=== PATIENT | male | born 1955 | race Caucasian/White ===

== ENCOUNTER 2017-07-08 17:11 | Inpatient (IN) | payer MEDICARE, OTHER ==
[~2017-07-08] VITALS: Ht 188 cm; Wt 171.3 kg
[~2017-07-08 17:11] MED LIST: ATEN100T PO; CHLO25TA13 PO; LISI20TA11 PO
[2017-07-08] MEDS ORDERED: KETOROLAC 15 MG INJ IV STA (19:32)
[2017-07-08] MEDS ORDERED: SOD CHLORIDE 0.9% 500 ML IV STA (19:32)
--- NOTE | 2017-07-08 19:42 | ERD ---
ER Documentation Chief Complaint Chief Complaint Dr. Rao suggested pt. to come for M/S adm. 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 Patient states he has had a wound to the plantar aspect of the right big toe for months which has been nonhealing and getting worse despite outpatient wound clinic. He denies recent antibiotic use. He has had no fevers or chills, no chest pain or shortness of breath, no headache or blurry vision. ROS All systems reviewed and are negative except as per history of present illness. Medications Home Meds Reported Medications Aspirin (Aspirin Low Dose) 81 Mg Tablet.dr, 81 MG PO DAILY, #30 TAB 07/08/17 Simvastatin* (Zocor*) 20 Mg Tablet, 20 MG PO QHS, #30 TAB 07/08/17 Lisinopril* (Lisinopril*) 40 Mg Tablet, 40 MG PO BID, #30 TAB 07/08/17 Chlorthalidone* (Chlorthalidone*) 25 Mg Tablet, 25 MG PO QAM, TAB 01/08/14 Atenolol* (Atenolol*) 100 Mg Tablet, 100 MG PO QHS, TAB 01/08/14 Discontinued Reported Medications Lisinopril* (Lisinopril*) 20 Mg Tablet, 20 MG PO DAILY, TAB 01/08/14 Allergies Allergies: Coded Allergies: No Known Allergy (Unverified , 07/08/17) PMhx/Soc Hypertension, obesity, depression History of Surgery: No Anesthesia Reaction: No Hx Neurological Disorder: No Hx Respiratory Disorders: No Hx Cardiac Disorders: Yes (HTN) Hx Psychiatric Problems: Yes (Depression) Hx Miscellaneous Medical Probl: No Hx Alcohol Use: No Hx Substance Use: No Hx Tobacco Use: No FmHx Family History: No diabetes Physical Exam Vitals Vital Signs Date Time Temp Pulse Resp B/P Pulse Ox O2 Delivery O2 Flow Rate FiO2 07/08/17 17:19 99.8 18 20 137/63 97 Physical Exam GENERAL: Well-developed, well-nourished, well-hydrated, in no apparent distress , looks nontoxic in appearance HEENT: Moist mucous membranes, pink conjunctiva, no cervical spine tenderness or step-off deformities, no goiter, no jaundice or icterus, extraocular movements intact without pain. No submandibular induration, and no pharyngeal erythema NEURO: Alert and oriented 3, cranial nerves II through XII intact bilaterally, pupils equal round reactive to light, no focal deficits or facial asymmetry, sensation intact distally Strength 5/5 in upper and lower extremities bilaterally CARDIAC: Regular rate and rhythm, no murmurs rubs or gallops LUNGS: Clear bilaterally no wheezing crackles or stridor ABDOMEN: Soft nontender, no guarding, no rigidity, no rebound, no psoas sign no obturator sign. Normoactive bowel sounds SKIN: Warm and dry to touch, ration to the first and second toes of the right foot with overlying skin cellulitis, purulent discharge EXTREMITIES: Changes consistent with stasis dermatitis of the lower extremities bilaterally, no clubbing cyanosis or edema, calves are bilaterally symmetrical, no Homans sign, no popliteal cord sign. Distal pulses equal and bilateral PSYCH: Normal affect without agitation or irritability Result Diagram: 07/08/17201707/08/172016 Results 24 hrs Laboratory Tests Test 07/08/17 20:17 07/08/17 20:18 Prothrombin Time 12.7Sec Prothrombin Time Ratio 1.0 INR International Normalized Ratio 0.94 Sodium Level 142mmol/L Potassium Level 4.5mmol/L Chloride Level 99mmol/L Carbon Dioxide Level 31mmol/L Anion Gap 17 Blood Urea Nitrogen 27mg/dl Creatinine 1.08mg/dl Glucose Level 99mg/dl Calcium Level 10.0mg/dl Total Bilirubin 0.5mg/dl Direct Bilirubin 0.00mg/dl Indirect Bilirubin 0.5mg/dl Aspartate Amino Transf (AST/SGOT) 25IU/L Alanine Aminotransferase (ALT/SGPT) 37IU/L Alkaline Phosphatase 83IU/L Total Protein 8.2g/dl Albumin 4.5g/dl Globulin 3.70g/dl Albumin/Globulin Ratio 1.21 Lipase 195U/L White Blood Count 8.710^3/ul Red Blood Count 5.6810^6/ul Hemoglobin 17.3g/dl Hematocrit 51.4% Mean Corpuscular Volume 90.5fl Mean Corpuscular Hemoglobin 30.5pg Mean Corpuscular Hemoglobin Concent 33.7g/dl Red Cell Distribution Width 12.4% Platelet Count 80790^3/UL Mean Platelet Volume 10.4fl Neutrophils % 76.0% Lymphocytes % 12.4% Monocytes % 8.1% Eosinophils % 2.3% Basophils % 0.7% Nucleated Red Blood Cells % 0.0/100WBC Neutrophils # 6.710^3/ul Lymphocytes # 1.110^3/ul Monocytes # 0.710^3/ul Eosinophils # 0.210^3/ul Basophils # 0.110^3/ul Nucleated Red Blood Cells # 0.010^3/ul Current Medications Medications (Trade) Dose Ordered Sig/Bella Route PRN Reason Start Time Stop Time Status Last Admin Dose Admin Piperacillin Sod/ Tazobactam Sod 50 ml @ 100 mls/hr ONCE ONCE IV 07/08/17 20:00 07/08/17 20:29 DC 07/08/17 20:24 Vancomycin HCl 250 ml @ 125 mls/hr ONCE IVPB 07/08/17 20:00 07/08/17 21:59 Sodium Chloride (NS) 500 ml @ 500 mls/hr Q1H STAT IV 07/08/17 19:32 07/08/17 20:31 DC 07/08/17 20:24 Ketorolac Tromethamine (Toradol) 15 mg ONCE STAT IV 07/08/17 19:32 07/08/17 19:38 DC 07/08/17 20:25 IV Flush (NS 3 ml) 3 ml PER PROTOCOL IV 07/08/17 21:30 Ondansetron HCl (Zofran Tab) 4 mg Q6H PRN PO NAUSEA AND/OR VOMITING 07/08/17 21:30 UNV Acetaminophen (Tylenol Tab) 650 mg Q6H PRN PO PAIN LEVEL 1-3 OR FEVER 07/08/17 21:30 Acetaminophen/ Hydrocodone Bitart ([place] (5/325)) 1 tab Q6H PRN PO MODERATE PAIN LEVEL 4-6 07/08/17 21:30 Acetaminophen/ Hydrocodone Bitart ([place] (5/325)) 2 tab Q6H PRN PO SEVERE PAIN LEVEL 7-10 07/08/17 21:30 Docusate Sodium (Colace) 100 mg Q12H PRN PO CONSTIPATION 07/08/17 21:30 UNV Bisacodyl (Dulcolax) 5 mg DAILY PRN PO CONSTIPATION 07/08/17 21:30 Atenolol (Tenormin) 100 mg QHS PO 07/09/17 21:00 UNV Chlorthalidone (Hygroton) 25 mg QAM PO 07/09/17 09:00 UNV Lisinopril (Zestril) 40 mg BID PO 07/09/17 09:00 UNV Miscellaneous Information 20 mg QHS PO 07/09/17 21:00 UNV Procedures/MDM IV line was established patient was placed on electronic device monitor rhythm strip revealed a sinus rhythm at about 80 bpm with upright P and T waves. Patient was afebrile I administered 500 cc normal saline intravenously, Toradol 15 mg IV 1, Zosyn 3.375 g IV and vancomycin 1 g IV. CBC and electrolytes were normal, liver function tests were normal, coagulation profile was normal X-ray right foot 3V Interpreted by me: Bones: No fracture Joints: No dislocation Foreign body: None Patient will be admitted to [facility] for continued medical management and IV antibiotics. Departure Diagnosis: Primary Impression: Infected pressure ulcer Pressure ulcer stage: unspecified pressure ulcer stage Qualified Code: L89.90 - Infected decubitus ulcer, unspecified ulcer stage Additional Impression: Cellulitis of right foot Condition: EDDIE Gaines MD Jul 08, 2017 19:42
[2017-07-08] MEDS ORDERED: PIPER-TAZO 3.375 GM IV (PMX) 50 ML IV ONE (20:00)
[2017-07-08] MEDS ORDERED: VANCOMYCIN 1 GM (PMX) 250 ML IVPB SCH (20:00)
[2017-07-08] MEDS ORDERED: SIMV20TA PO (20:18)
[2017-07-08] MEDS ORDERED: LISI40TA9 PO (20:18)
[2017-07-08] MEDS ORDERED: ASPI-664 PO (20:19)
[2017-07-08 20:24] LABS: BASOPHIL # 0.1 10^3/ul (0.0-0.1); BASOPHILS % 0.7 % (0.0-2.0); EOSINOPHILS # 0.2 10^3/ul (0.0-0.5); EOSINOPHILS % 2.3 % (0.0-7.0); HEMATOCRIT 51.4 % (42.0-52.0); HEMOGLOBIN 17.3 g/dl (14.0-18.0); LYMPHOCYTES # 1.1 10^3/ul (0.8-2.9); LYMPHOCYTES % 12.4 % (15.0-51.0); MEAN CORPUSCULAR HEMOGLOBIN 30.5 pg (29.0-33.0); MEAN CORPUSCULAR HGB CONC 33.7 g/dl (32.0-37.0); MEAN CORPUSCULAR VOLUME 90.5 fl (82.0-101.0); MEAN PLATELET VOLUME 10.4 fl (7.4-10.4); MONOCYTE # 0.7 10^3/ul (0.3-0.9); MONOCYTES % 8.1 % (0.0-11.0); NEUTROPHIL # 6.7 10^3/ul (1.6-7.5); PLATELET COUNT 227 10^3/UL (140-415); RED BLOOD COUNT 5.68 10^6/ul (4.70-6.10); RED CELL DISTRIBUTION WIDTH 12.4 % (11.5-14.5); WHITE BLOOD COUNT 8.7 10^3/ul (4.8-10.8)
--- NOTE | 2017-07-08 20:40 | RADRPT ---
PROCEDURE: XR Right Foot. CLINICAL INDICATION: Swelling. Possible osteomyelitis.. TECHNIQUE: AP, lateral and oblique views of the right foot was obtained. The images were reviewed on a PACS workstation. COMPARISON: None. FINDINGS: Soft tissues are unremarkable. There is no gas within the soft tissues. There are no focal bone eros ions. There are degenerative changes of the first digit metatarsal phalangeal and interphalangeal darion ints. There are no fractures. Joint relationships are otherwise maintained. Bone mineralization is within normal limits. Plantar calcaneal bone spur is present. IMPRESSION: No evidence for osteomyelitis. Degenerative changes of the first digit. Plantar calcaneal bone spur. RPTAT: HMVK .Osmar Patel MD, Date Time Electronically viewed and signed by .Osmar Patel MD, MD on 07/08/2017 20:39 .K/
[2017-07-08 20:45] LABS: INR 0.94; PROTIME 12.7 Sec (11.9-14.9)
[2017-07-08 20:49] LABS: ALBUMIN 4.5 g/dl (3.3-4.9); ALBUMIN/GLOBULIN RATIO 1.21; BILIRUBIN,INDIRECT 0.5 mg/dl (0-1.1); BILIRUBIN,TOTAL 0.5 mg/dl (0.2-1.3); CREATININE 1.08 mg/dl (0.61-1.24); POTASSIUM 4.5 mmol/L (3.5-5.1); TOTAL PROTEIN 8.2 g/dl (6.1-8.1)
[2017-07-08 21:00] VITALS: TEMP 98.2
[2017-07-08] MEDS ORDERED: ACETAMINOPHEN 325 MG TAB PO PRN (21:30)
[2017-07-08] MEDS ORDERED: ONDANSETRON 4 MG TAB PO PRN (21:30)
[2017-07-08] MEDS ORDERED: BISACODYL (EC) 5 MG TAB PO PRN (21:30)
[2017-07-08] MEDS ORDERED: HYDROCODONE/APAP (5/325) TAB PO PRN ×2 (21:30)
[2017-07-08] MEDS ORDERED: DOCUSATE SODIUM 100 MG CAP PO PRN (21:30)
[2017-07-08] MEDS ORDERED: NACL 0.9% 3 ML SYG IV SCH (21:30)
[2017-07-08 23:00] VITALS: Ht 188 cm; Wt 171.3 kg
[2017-07-09 02:00] VITALS: BP 126/58; RESP 20
[2017-07-09 06:36] LABS: BASOPHIL # 0.1 10^3/ul (0.0-0.1); BASOPHILS % 0.7 % (0.0-2.0); EOSINOPHILS # 0.2 10^3/ul (0.0-0.5); EOSINOPHILS % 1.6 % (0.0-7.0); HEMATOCRIT 46.6 % (42.0-52.0); HEMOGLOBIN 15.7 g/dl (14.0-18.0); LYMPHOCYTES # 1.2 10^3/ul (0.8-2.9); LYMPHOCYTES % 12.3 % (15.0-51.0); MEAN CORPUSCULAR HEMOGLOBIN 30.8 pg (29.0-33.0); MEAN CORPUSCULAR HGB CONC 33.7 g/dl (32.0-37.0); MEAN CORPUSCULAR VOLUME 91.4 fl (82.0-101.0); MEAN PLATELET VOLUME 10.8 fl (7.4-10.4); MONOCYTE # 1.2 10^3/ul (0.3-0.9); MONOCYTES % 12.5 % (0.0-11.0); NEUTROPHIL # 7.1 10^3/ul (1.6-7.5); NEUTROPHILS % 72.4 % (39.0-77.0); PLATELET COUNT 203 10^3/UL (140-415); RED CELL DISTRIBUTION WIDTH 12.6 % (11.5-14.5); WHITE BLOOD COUNT 9.8 10^3/ul (4.8-10.8)
[2017-07-09 06:52] LABS: ALBUMIN 3.8 g/dl (3.3-4.9); ALBUMIN/GLOBULIN RATIO 1.11; BILIRUBIN,INDIRECT 0.8 mg/dl (0-1.1); BILIRUBIN,TOTAL 0.8 mg/dl (0.2-1.3); CALCIUM 9.4 mg/dl (8.4-10.2); CHOL/HDL RATIO 4.7 RATIO; CREATININE 1.16 mg/dl (0.61-1.24); MAGNESIUM 1.9 mg/dl (1.7-2.5); POTASSIUM 4.2 mmol/L (3.5-5.1); TOTAL PROTEIN 7.2 g/dl (6.1-8.1)
[2017-07-09 07:18] LABS: THYROID STIMULATING HORMONE 2.37 MIU/L (0.465-4.680)
[2017-07-09 08:30] VITALS: BP 130/61; RESP 19
--- NOTE | 2017-07-09 08:56 | HP ---
Date/Time of Note Date/Time of Note DATE: 07/09/17 TIME: 08:46 Assessment/Plan VTE Prophylaxis VTE Prophylaxis Intervention: SCD's Assessment/Plan Chief Complaint/Hosp Course This is a 62-year-old male being admitted to the [facility] floor for: #1 right toe infection: Ulcerative changes of the toe and underlying infection and/or cellulitis. X-ray does not show any signs of ostium mellitus. At the current time will keep the patient on vancomycin which was started in the ED. will obtain a culture of the wound. Will consult wound care. Patient's remediation project engineer Dr. Rao was consulted as well. Will hold aspirin at this time secondary to the patient needs surgical intervention. #2 chronic skin changes bilateral lower extremities: Chronic cellulitis versus venous stasis. She denies any previous antibiotic use. His lower extremity especially over the right cook appears to have chronic skin changes which appeared very consistent with venous stasis. Patient may benefit from vascular surgery evaluation as well though this could be possibly done as an outpatient. Will defer this to the primary team and podiatry. #3 hypertension: Continue patient's home medication #4 Hyperlipidemia: Check lipid panel. 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 Patient states he has had a wound to the plantar aspect of the right big toe for months which has been nonhealing and getting worse despite outpatient wound clinic. He denies recent antibiotic use. He has had no fevers or chills, no chest pain or shortness of breath, no headache or blurry vision. Allergies: NKDA Medications: See NANCY MIRANDA Const: As per HPI Eyes : No pain discharge or redness or change in visual acuity ENT: No pain, sore throat, congestion, congestion, dysphagia or discharge Respiratory: No shortness of breath, cough, sputum, wheezing, or pleuritic pain Cardiovascular: No chest pain, palpitation, PND, or edema GI : no change in appetite, abdominal pain, nausea, vomiting, diarrhea, constipation, or change in the color his stool Genitourinary: No dysuria, hematuria, flank pain , discharge or CVA tenderness Musculoskeletal: As per HPI Skin: Chronic skin changes of the bilateral lower extremities, as per HPI Neuro: No headache, dizziness, syncope, seizure, focal weakness Endocrine: No polyuria, polydipsia, temperature intolerance Psych: No hallucination, depression, anxiety or suicidal ideation PMH/Family/Social Past Medical History Hypertension, hyperlipidemia, chronic cellulitis of the bilateral lower extremities? Past Surgical History Past Surgical Hx: no surgical history Family History Significant Family History: no pertinent family hx Social History Alcohol Use: none Smoking Status: Never smoker Drug Use: none Exam/Review of Systems Vital Signs Vitals Vital Signs Date Time Temp Pulse Resp B/P Pulse Ox O2 Delivery O2 Flow Rate FiO2 07/09/17 08:30 98.2 79 19 130/61 91 07/08/17 21:00 Room Air Intake and Output 07/08/17 07/08/17 07/09/17 15:00 23:00 07:00 Intake Total 250 ml 500 ml Balance 250 ml 500 ml Exam Exam General: Is a pleasant male, morbidly obese, lying in bed in no acute distress HEENT: Atraumatic, normocephalic. The pupils are equal, round and reactive. Extraocular motor are intact Neck: Supple with full range of motion. No rigidity or meningismus Chest: Nontender Lungs: Clear to auscultation bilaterally no crackles rales or wheezing Heart: Normal S1-S2, Regular rhythm and rate. No murmur, S3, or S4 Abdomen: Soft , nontender, nondistended , bowel sounds are present. No guarding no rebound tenderness , No masses or organomegaly. No costovertebral temporal angle mass Extremities: Chronic skin changes changes noted on the bilateral lower extremities level of the shins greater on the right. Chronic skin changes noted of the bilateral feet right greater than the left. Neurologic: Normal mental status, speech normal, cranial nerves II through XII are intact, motor and sensory are intact, no focal weakness Skin: Discoloration of the bilateral lower extremities from the level of the cook down to the feet greater on the right than the left, nonpitting edema of the right lower extremity at the level of the cook. Swelling of the right second toe erythema and warmth noted, draining wound Additional Comments PROCEDURE: XR Right Foot. CLINICAL INDICATION: Swelling. Possible osteomyelitis.. TECHNIQUE: AP, lateral and oblique views of the right foot was obtained. The images were reviewed on a PACS workstation. COMPARISON: None. FINDINGS: Soft tissues are unremarkable. There is no gas within the soft tissues. There are no focal bone erosions. There are degenerative changes of the first digit metatarsal phalangeal and interphalangeal joints. There are no fractures. Joint relationships are otherwise maintained. Bone mineralization is within normal limits. Plantar calcaneal bone spur is present. IMPRESSION: No evidence for osteomyelitis. Degenerative changes of the first digit. Plantar calcaneal bone spur. RPTAT: HMVK .Osmar Patel MD, MD Date Time Electronically viewed and signed by .Osmar Patel MD, on 07/08/2017 20:39 .K/ CC: EDDIE NAVAS MD Labs Result Diagram: 07/09/1744 07/09/17543 Medications Medications Current Medications Ondansetron HCl (Zofran Tab) 4 mg Q6H PRN PO NAUSEA AND/OR VOMITING; Start at 21:30 Acetaminophen (Tylenol Tab) 650 mg Q6H PRN PO PAIN LEVEL 1-3 OR FEVER; Start 07/08/17 at 21:30 Acetaminophen/ Hydrocodone Bitart ([place] (5/325)) 1 tab Q6H PRN PO MODERATE PAIN LEVEL 4-6; Start 07/08/17 at 21:30 Acetaminophen/ Hydrocodone Bitart ([place] (5/325)) 2 tab Q6H PRN PO SEVERE PAIN LEVEL 7-10; Start 07/08/17 at 21:30 Docusate Sodium (Colace) 100 mg Q12H PRN PO CONSTIPATION; Start 07/08/17 at 21 :30 Bisacodyl (Dulcolax) 5 mg DAILY PRN PO CONSTIPATION; Start 07/08/17 at 21:30 Atenolol (Tenormin) 100 mg QHS PO ; Start 07/09/17 at 21:00 Chlorthalidone (Hygroton) 25 mg QAM PO ; Start 07/09/17 at 09:00 Lisinopril (Zestril) 40 mg BID PO ; Start 07/09/17 at 09:00 Atorvastatin Calcium (Lipitor) 10 mg DAILY@21 PO ; Start 07/09/17 at 21:00 MARINA LEON Jul 09, 2017 08:56
[2017-07-09] MEDS ORDERED: VANCOMYCIN IV PER PHARMACY XX SCH (09:00)
[2017-07-09] MEDS: LISINOPRIL 20 MG TAB PO SCH ×2 (09:48→21:19)
[2017-07-09] MEDS: CHLORTHALIDONE 25 MG TAB PO SCH (09:48)
[2017-07-09] MEDS ORDERED: PIPER-TAZO 3.375 GM IV (PMX) 50 ML IVPB SCH (10:00)
[2017-07-09] MEDS ORDERED: VANCOMYCIN 2 GM in SOD CHLORIDE 0.9% 500 ML IVPB ONE (11:00)
[2017-07-09 13:00] VITALS: BP 127/65; RESP 18
--- NOTE | 2017-07-09 18:33 | PN ---
Date/Time of Note Date/Time of Note DATE: 07/09/17 TIME: 18:31 Assessment/Plan VTE Prophylaxis VTE Prophylaxis Intervention: SCD's Assessment/Plan Assessment/Plan 1. Right 1st and 2nd toe infection - Podiatry on board and recommendations appreciated. patient will need IV antibiotics and did not do well with HH before. Most likely will need SNF placement while receiving treatment. No osteo seen on Xray and had an MRI within the past couple months per patient which was negative for OM as well - Currently on vancomycin and ID consultation placed for antibiotic management. - Wound care per podiatry - Wound culture ordered 2. hypertension - Continue patient's home medication 3. Hyperlipidemia - continue on statin - LDL within normal limits 4. Morbid obesity - A1c 5.9 5. Disposition - continue monitoring on med/surg - pending ID evaluation Subjective 24 Hr Interval Summary Free Text/Dictation Patient has no new complaints and denies any pain in right foot. No acute overnight events. Spoke with Dr. Rao regarding patient and states will need longer term IV antibiotics and benefit from SNF placement since has issues with HH services Exam/Review of Systems Vital Signs Vitals Vital Signs Date Time Temp Pulse Resp B/P Pulse Ox O2 Delivery O2 Flow Rate FiO2 07/09/17 08:30 98.2 79 19 130/61 91 07/08/17 21:00 Room Air Intake and Output 07/08/17 07/08/17 07/09/17 15:00 23:00 07:00 Intake Total 250 ml 500 ml Balance 250 ml 500 ml Exam General: morbidly obese, lying in bed in no acute distress HEENT: Atraumatic, normocephalic. The pupils are equal, round and reactive. Extraocular motor are intact Neck: Supple Lungs: Clear to auscultation bilaterally no crackles rales or wheezing Heart: Normal S1-S2, Regular rhythm and rate. No murmur, S3, or S4 Abdomen: Soft , nontender, nondistended , bowel sounds are present. No guarding no rebound tenderness, Extremities: Chronic skin changes changes noted lower extremities level of the shins greater on the right. Chronic skin changes noted of the bilateral feet right greater than the left. Neurologic: Normal mental status, speech normal, cranial nerves II through XII are intact, motor and sensory are intact, no focal weakness Skin: venous stasis changes right lower extremity. Swelling of the right first and second toe with erythema and warmth noted, draining wound Results Result Diagram: 07/09/17 0544 07/09/17 0544 Results 24 hrs Laboratory Tests Test 07/08/17 20:17 07/08/17 20:18 07/09/17 05:44 Prothrombin Time 12.7 Prothrombin Time Ratio 1.0 INR International Normalized Ratio 0.94 Sodium Level 142 141 Potassium Level 4.5 4.2 Chloride Level 99 102 Carbon Dioxide Level 31 30 Anion Gap 17 H 13 Blood Urea Nitrogen 27 H 30 H Creatinine 1.08 1.16 Glucose Level 99 97 Calcium Level 10.0 9.4 Total Bilirubin 0.5 0.8 Direct Bilirubin 0.00 0.00 Indirect Bilirubin 0.5 0.8 Aspartate Amino Transf (AST/SGOT) 25 26 Alanine Aminotransferase (ALT/SGPT) 37 37 Alkaline Phosphatase 83 65 Total Protein 8.2 H 7.2 # Albumin 4.5 3.8 Globulin 3.70 H 3.40 H Albumin/Globulin Ratio 1.21 1.11 Lipase 195 White Blood Count 8.7 9.8 Red Blood Count 5.68 5.10 Hemoglobin 17.3 15.7 Hematocrit 51.4 46.6 Mean Corpuscular Volume 90.5 91.4 Mean Corpuscular Hemoglobin 30.5 30.8 Mean Corpuscular Hemoglobin Concent 33.7 33.7 Red Cell Distribution Width 12.4 12.6 Platelet Count 227 203 Mean Platelet Volume 10.4 10.8 H Neutrophils % 76.0 72.4 Lymphocytes % 12.4 L 12.3 L Monocytes % 8.1 12.5 H Eosinophils % 2.3 1.6 Basophils % 0.7 0.7 Nucleated Red Blood Cells % 0.0 0.0 Neutrophils # 6.7 7.1 Lymphocytes # 1.1 1.2 Monocytes # 0.7 1.2 H Eosinophils # 0.2 0.2 Basophils # 0.1 0.1 Nucleated Red Blood Cells # 0.0 0.0 Hemoglobin A1c 5.9 Magnesium Level 1.9 Triglycerides Level 225 H Cholesterol Level 151 LDL Cholesterol, Calculated 74 HDL Cholesterol 32 Cholesterol/HDL Ratio 4.7 Thyroid Stimulating Hormone (TSH) 2.370 Medications Medications Current Medications Ondansetron HCl (Zofran Tab) 4 mg Q6H PRN PO NAUSEA AND/OR VOMITING; Start at 21:30 Acetaminophen (Tylenol Tab) 650 mg Q6H PRN PO PAIN LEVEL 1-3 OR FEVER; Start 07/08/17 at 21:30 Acetaminophen/ Hydrocodone Bitart ([place] (5/325)) 1 tab Q6H PRN PO MODERATE PAIN LEVEL 4-6; Start 07/08/17 at 21:30 Acetaminophen/ Hydrocodone Bitart ([place] (5/325)) 2 tab Q6H PRN PO SEVERE PAIN LEVEL 7-10; Start 07/08/17 at 21:30 Docusate Sodium (Colace) 100 mg Q12H PRN PO CONSTIPATION; Start 07/08/17 at 21 :30 Bisacodyl (Dulcolax) 5 mg DAILY PRN PO CONSTIPATION; Start 07/08/17 at 21:30 Atenolol (Tenormin) 100 mg QHS PO ; Start 07/09/17 at 21:00 Chlorthalidone (Hygroton) 25 mg QAM PO Last administered on 07/09/17 09:48; Admin Dose 25 MG; Start 07/09/17 at 09:00 Lisinopril (Zestril) 40 mg BID PO Last administered on 07/09/17 09:48; Admin Dose 40 MG; Start 07/09/17 at 09:00 Atorvastatin Calcium 10 mg 10 mg DAILY@21 PO ; Start 07/09/17 at 21:00 Vancomycin HCl 250 ml @ 125 mls/hr Q12H IVPB ; Start 07/10/17 at 00:00 Piperacillin Sod/ Tazobactam Sod (Zosyn 3.375gm/ 50 ml (Pmx)) 50 ml @ 100 mls/ hr Q6 IVPB ; Start 07/09/17 at 18:00 KEYON HARPER MD Jul 09, 2017 18:33
[2017-07-09 19:55] VITALS: BP 135/63; RESP 18
[2017-07-09] MEDS: PIPER-TAZO 3.375 GM IV (PMX) 50 ML IVPB SCH (21:19)
[2017-07-09] MEDS: ATORVASTATIN 10 MG TAB PO SCH (21:19)
[2017-07-09] MEDS ORDERED: VANCOMYCIN 1.25 GM in SOD CHLORIDE 0.9% 250 ML IVPB SCH (23:00)
[2017-07-09] MEDS: ATENOLOL 100 MG TAB PO SCH (23:10)
[2017-07-09] MEDS: VANCOMYCIN 1 GM in NS 250 ML IVPB SCH (23:28)
[2017-07-10 02:21] VITALS: BP 85/50; RESP 20
[2017-07-10] MEDS: PIPER-TAZO 3.375 GM IV (PMX) 50 ML IVPB SCH ×3 (02:47→12:24)
--- NOTE | 2017-07-10 08:10 | CONS ---
DATE OF ADMISSION: 07/08/2017 DATE OF CONSULTATION: 07/09/2017 TYPE OF CONSULTATION: Infectious Disease. REASON FOR CONSULTATION: Antibiotic management. 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 His past problems include: 1. Hypertension. 2. Hyperlipidemia. 3. Morbid obesity. 4. Right chronic cellulitis of bilateral lower extremities. Acutely, the patient comes in with cellulitis of the right foot and second toe. He has a wound to t he plantar aspect of the right big toe for months, which has been nonhealing. He denies recent anti biotic use. He has had no fevers or chills, no chest pain, shortness of breath, no headaches, or bl urred vision. PAST MEDICAL HISTORY: Operations as outlined. FAMILY HISTORY: Noncontributory. SOCIAL HISTORY: He does not smoke, drink, or abuse drugs. ALLERGIES: None to penicillin, sulfa, or foods. MEDICATIONS: Per chart. REVIEW OF SYSTEMS: As per HPI. PHYSICAL EXAMINATION: GENERAL: The patient is a pleasant, morbidly obese male who is lying in bed in no acute distress. VITAL SIGNS: Stable. He is afebrile. SKIN: Without generalized rash. HEENT: Within normal limits. NECK: Supple. LYMPH NODES: None palpable. CHEST: Decreased breath sounds at the bases. HEART: Without murmur or gallop. ABDOMEN: Soft, nontender, nondistended. No organosplenomegaly or masses. EXTREMITIES: He has chronic skin changes in both lower extremities from the anterior tibial areas t o the foot, right greater than left. He has changes in both feet, right greater than left. He has discoloration or stasis changes with nonpitting edema. RECTAL AND GENITAL: Deferred. NEUROLOGICAL: No focal neurological abnormalities. IMAGING: An x-ray of the foot shows swelling, no gas within the soft tissue. No evidence for osteo myelitis. There are degenerative changes of the 1st digit with plantar calcaneal bone spurs. ANCILLARY LABORATORY DATA: White count is 9.8, H and H of 15.7 and 46.6, platelet count 203,000. B UN and creatinine 30/1.16. Glucose 97. IMPRESSION AND PLAN: Patient was started on vancomycin and Zosyn. We will await the response to hi s therapy. There is a wound culture that has been done, and we will await that result. I will dict ate my findings to the hospitalist. Dictated By: TONY SMILEY MD, JD/MIRTA Conf#: [id number] DID#: [id number] CC: MARINA LEON MD;*End*
[2017-07-10 08:18] VITALS: BP 123/59; RESP 16
[2017-07-10] MEDS: LISINOPRIL 20 MG TAB PO SCH ×2 (09:39→21:00)
[2017-07-10] MEDS: CHLORTHALIDONE 25 MG TAB PO SCH (09:40)
--- NOTE | 2017-07-10 11:29 | CONS ---
Date/Time of Note Date/Time of Note DATE: 07/09/17 TIME: 18:28 Assessment/Plan Assessment/Plan Problems: (1) Cellulitis of right foot Status: Acute (2) Infected pressure ulcer Status: Acute Qualifiers: Qualified Code: L89.90 - Infected decubitus ulcer, unspecified ulcer stage (3) Pre-syncope Status: Acute (4) FAM (acute kidney injury) Status: Acute (5) HTN (hypertension) Status: Acute (6) Major depressive disorder Status: Acute Additional Assessment/Plan I would like patient to continue IV antibiotics. Patient will require prison facility for continuation of his care. I have discussed the case with infectious disease and hospitalist. I also discussed the case with the patient. His best scenario would be care on a regular basis with IV antibiotics and offloading of his right foot. His second toe is at risk of amputation. Patient will be followed in-house. Consultation Date/Type/Reason Admit Date/Time Jul 08, 2017 at 20:30 Date of Consultation: Jul 09, 2017 Type of Consultation: foot and ankle surgery Reason for Consultation right second toe infection and open wound Hx of Present Illness As you know this is a 62-year-old morbidly obese male patient who I have referred from my private practice secondary to a worsening infection of his right second toe with an open wound. Patient has failed home nurse visits with wound dressing changes, antibiotics, wound care in the office and his condition is gotten worse and increased. During his last visit to the office I recommended admission to the hospital for IV antibiotics and further evaluation and higher level of care. His past medical history significant for hypertension , hyperlipidemia, chronic cellulitis of bilateral lower extremities, morbid obesity. Patient will be fully evaluated and will be started on antibiotics. Negative for fevers, chills, nausea, vomiting, diarrhea, constipation, headache , visual disturbance, neck pain, chest pain, shortness of breath. All other systems are negative, except as noted in the HPI. Past Medical History Medical History: high cholesterol, hypertension Past Surgical History Past Surgical Hx: no surgical history Family History Significant Family History: no pertinent family hx Social History Alcohol Use: none Smoking Status: Never smoker Drug Use: none Exam/Review of Systems Vital Signs Vitals Vital Signs Date Time Temp Pulse Resp B/P Pulse Ox O2 Delivery O2 Flow Rate FiO2 07/10/17 08:18 98.3 73 16 123/59 91 07/08/17 21:00 Room Air Intake and Output 07/09/17 07/09/17 07/10/17 15:00 23:00 07:00 Intake Total 50 ml 1130 ml 650 ml Balance 50 ml 1130 ml 650 ml Exam Patient is morbidly obese. He is sitting on the bedside. The right foot exam shows extensive edema and erythema of the right second toe with contracture and distal open wound. There is surrounding hyperkeratosis present in the distal aspect of the second toe and the hallux. The erythema does not extend beyond the metatarsophalangeal joint at the time. There is small amount of scant purulent drainage noted from the open wound of the right second toe. Right second toe is not tender to exam. Contracted toes noted on both feet. Labs reviewed. MRI pending. Pedal pulses are weak on both feet secondary to edema present. Results Result Diagram: 07/09/17 0544 07/09/1744 Medications Medications Current Medications Ondansetron HCl (Zofran Tab) 4 mg Q6H PRN PO NAUSEA AND/OR VOMITING; Start at 21:30 Acetaminophen (Tylenol Tab) 650 mg Q6H PRN PO PAIN LEVEL 1-3 OR FEVER; Start 07/08/17 at 21:30 Acetaminophen/ Hydrocodone Bitart ([place] (5/325)) 1 tab Q6H PRN PO MODERATE PAIN LEVEL 4-6; Start 07/08/17 at 21:30 Acetaminophen/ Hydrocodone Bitart ([place] (5/325)) 2 tab Q6H PRN PO SEVERE PAIN LEVEL 7-10; Start 07/08/17 at 21:30 Docusate Sodium (Colace) 100 mg Q12H PRN PO CONSTIPATION; Start 07/08/17 at 21 :30 Bisacodyl (Dulcolax) 5 mg DAILY PRN PO CONSTIPATION; Start 07/08/17 at 21:30 Atenolol (Tenormin) 100 mg QHS PO Last administered on 07/09/17 23:10; Admin Dose 100 MG; Start 07/09/17 at 21:00 Chlorthalidone (Hygroton) 25 mg QAM PO Last administered on 07/10/17 09:40; Admin Dose 25 MG; Start 07/09/17 at 09:00 Lisinopril (Zestril) 40 mg BID PO Last administered on 07/10/17 09:39; Admin Dose 40 MG; Start 07/09/17 at 09:00 Atorvastatin Calcium 10 mg 10 mg DAILY@21 PO Last administered on 07/09/17 21 :19; Admin Dose 10 MG; Start 07/09/17 at 21:00 Vancomycin HCl 250 ml @ 125 mls/hr Q12H IVPB Last administered on 07/09/17 23:28; Admin Dose 125 MLS/HR; Start 07/10/17 at 00:00 Piperacillin Sod/ Tazobactam Sod (Zosyn 3.375gm/ 50 ml (Pmx)) 50 ml @ 100 mls/ hr Q6 IVPB Last administered on 07/10/17 06:35; Admin Dose 100 MLS/HR; Start 07/09/17 at 18:00 PREMA MATHIS DPM Jul 10, 2017 11:29
[2017-07-10] MEDS: VANCOMYCIN 1 GM in NS 250 ML IVPB SCH (13:11)
--- NOTE | 2017-07-10 13:53 | PN ---
Date/Time of Note Date/Time of Note DATE: 07/10/17 TIME: 13:53 Assessment/Plan Lines/Catheters IV Catheter Type (from Nrsg): Peripheral IV Exam/Review of Systems Vital Signs Vitals Vital Signs Date Time Temp Pulse Resp B/P Pulse Ox O2 Delivery O2 Flow Rate FiO2 07/10/17 08:18 98.3 73 16 123/59 91 07/08/17 21:00 Room Air Intake and Output 07/09/17 07/09/17 07/10/17 15:00 23:00 07:00 Intake Total 50 ml 1130 ml 650 ml Balance 50 ml 1130 ml 650 ml Results Result Diagram: 07/09/17 0544 07/09/17 0544 Medications Medications Current Medications Ondansetron HCl (Zofran Tab) 4 mg Q6H PRN PO NAUSEA AND/OR VOMITING; Start at 21:30 Acetaminophen (Tylenol Tab) 650 mg Q6H PRN PO PAIN LEVEL 1-3 OR FEVER; Start 07/08/17 at 21:30 Acetaminophen/ Hydrocodone Bitart ([place] (5/325)) 1 tab Q6H PRN PO MODERATE PAIN LEVEL 4-6; Start 07/08/17 at 21:30 Acetaminophen/ Hydrocodone Bitart ([place] (5/325)) 2 tab Q6H PRN PO SEVERE PAIN LEVEL 7-10; Start 07/08/17 at 21:30 Docusate Sodium (Colace) 100 mg Q12H PRN PO CONSTIPATION; Start 07/08/17 at 21 :30 Bisacodyl (Dulcolax) 5 mg DAILY PRN PO CONSTIPATION; Start 07/08/17 at 21:30 Atenolol (Tenormin) 100 mg QHS PO Last administered on 07/09/17 23:10; Admin Dose 100 MG; Start 07/09/17 at 21:00 Chlorthalidone (Hygroton) 25 mg QAM PO Last administered on 07/10/17 09:40; Admin Dose 25 MG; Start 07/09/17 at 09:00 Lisinopril (Zestril) 40 mg BID PO Last administered on 07/10/17 09:39; Admin Dose 40 MG; Start 07/09/17 at 09:00 Atorvastatin Calcium 10 mg 10 mg DAILY@21 PO Last administered on 07/09/17 21 :19; Admin Dose 10 MG; Start 07/09/17 at 21:00 Vancomycin HCl 250 ml @ 125 mls/hr Q12H IVPB Last administered on 07/10/17 13:11; Admin Dose 125 MLS/HR; Start 07/10/17 at 00:00 Piperacillin Sod/ Tazobactam Sod (Zosyn 3.375gm/ 50 ml (Pmx)) 50 ml @ 100 mls/ hr Q6 IVPB Last administered on 07/10/17 12:24; Admin Dose 100 MLS/HR; Start 07/09/17 at 18:00 KEYON HARPER MD Jul 10, 2017 13:53
[2017-07-10 14:00] VITALS: BP 96/48; RESP 18
[2017-07-10] MEDS ORDERED: LEVOFLOXACIN 500 MG TAB PO ONE (15:00)
--- NOTE | 2017-07-10 16:02 | PN ---
Date/Time of Note Date/Time of Note DATE: 07/10/17 TIME: 15:59 Assessment/Plan VTE Prophylaxis VTE Prophylaxis Intervention: SCD's Lines/Catheters IV Catheter Type (from Nrsg): Peripheral IV Assessment/Plan Assessment/Plan 1. Right 1st and 2nd toe infection - Podiatry on board and recommendations appreciated. patient will need IV antibiotics but refusing SNF placement. CM working on for IV antibiotics but unable to determine which antibiotics at this time until wound cultures return. - Xray negative for OM and recent MRI shows no signs of OM as well - Currently on vancomycin and ID consultation placed for antibiotic management. - Wound care per podiatry - Wound culture ordered 2. hypertension - Continue patient's home medication 3. Hyperlipidemia - continue on statin - LDL within normal limits 4. Morbid obesity - A1c 5.9 5. Disposition - continue monitoring on med/surg - pending wound cultures for determination of IV antibiotics Subjective 24 Hr Interval Summary Free Text/Dictation Patient concerned about being sent to a SNF and would rather be sent home. Discussed need to find out what bacteria is growing in his wound before determining what antibiotics he will need. Denies any acute overnight events. Exam/Review of Systems Vital Signs Vitals Vital Signs Date Time Temp Pulse Resp B/P Pulse Ox O2 Delivery O2 Flow Rate FiO2 07/10/17 14:00 98.8 67 18 96/48 91 07/08/17 21:00 Room Air Intake and Output 07/09/17 07/09/17 07/10/17 15:00 23:00 07:00 Intake Total 50 ml 1130 ml 650 ml Balance 50 ml 1130 ml 650 ml Exam General: morbidly obese, lying in bed in no acute distress HEENT: Atraumatic, normocephalic. The pupils are equal, round and reactive. Extraocular motor are intact Neck: Supple Lungs: Clear to auscultation bilaterally no crackles rales or wheezing Heart: Normal S1-S2, Regular rhythm and rate. No murmur, S3, or S4 Abdomen: Soft , nontender, nondistended , bowel sounds are present. No guarding no rebound tenderness, Extremities: Chronic skin changes changes noted lower extremities level of the shins greater on the right. Neurologic: Normal mental status, speech normal, cranial nerves II through XII are intact, motor and sensory are intact, no focal weakness Skin: venous stasis changes right lower extremity. Right foot bandaged in dressing that is CDI Results Result Diagram: 07/09/17 0544 07/09/17 0544 Medications Medications Current Medications Ondansetron HCl (Zofran Tab) 4 mg Q6H PRN PO NAUSEA AND/OR VOMITING; Start at 21:30 Acetaminophen (Tylenol Tab) 650 mg Q6H PRN PO PAIN LEVEL 1-3 OR FEVER; Start 07/08/17 at 21:30 Acetaminophen/ Hydrocodone Bitart ([place] (5/325)) 1 tab Q6H PRN PO MODERATE PAIN LEVEL 4-6; Start 07/08/17 at 21:30 Acetaminophen/ Hydrocodone Bitart ([place] (5/325)) 2 tab Q6H PRN PO SEVERE PAIN LEVEL 7-10; Start 07/08/17 at 21:30 Docusate Sodium (Colace) 100 mg Q12H PRN PO CONSTIPATION; Start 07/08/17 at 21 :30 Bisacodyl (Dulcolax) 5 mg DAILY PRN PO CONSTIPATION; Start 07/08/17 at 21:30 Atenolol (Tenormin) 100 mg QHS PO Last administered on 07/09/17 23:10; Admin Dose 100 MG; Start 07/09/17 at 21:00 Chlorthalidone (Hygroton) 25 mg QAM PO Last administered on 07/10/17 09:40; Admin Dose 25 MG; Start 07/09/17 at 09:00 Lisinopril (Zestril) 40 mg BID PO Last administered on 07/10/17 09:39; Admin Dose 40 MG; Start 07/09/17 at 09:00 Atorvastatin Calcium 10 mg 10 mg DAILY@21 PO Last administered on 07/09/17 21 :19; Admin Dose 10 MG; Start 07/09/17 at 21:00 Vancomycin HCl (Vancocin) 250 ml @ 125 mls/hr Q12H IVPB Last administered on 07/10/17 13:11; Admin Dose 125 MLS/HR; Start 07/10/17 at 00:00 Levofloxacin (Levaquin) 500 mg DAILY@15 PO ; Start 07/11/17 at 15:00 KEYON HARPER MD Jul 10, 2017 16:02
--- NOTE | 2017-07-10 19:19 | PN ---
DATE: 07/10/2017 SUBJECTIVE: No acute changes. The patient is alert, feels good. Denies pain, no fevers. Vital si gns stable. No labs this morning. MICROBIOLOGY: No labs ordered. DIAGNOSTICS: X-ray of right foot revealed no evidence of osteomyelitis. ANTIMICROBIALS: The patient is on IV vancomycin and Zosyn. PHYSICAL EXAMINATION: GENERAL: This is a morbidly obese elderly man who is awake, in no distress. HEENT: Head atraumatic, normocephalic. Sclerae anicteric. NECK: Supple. CHEST: Rise symmetrical. Breath sounds clear. HEART: S1, S2. ABDOMEN: Soft, bowel tones present. EXTREMITIES: With right lower extremity edema, erythema, second and first toe wounds and swelling. ASSESSMENT: 1. Right lower extremity cellulitis with second and first toe wounds. 2. Morbid obesity. 3. Hypertension. 4. Chronic venous stasis. PLAN: The patient remains stable. We will continue him on current antimicrobials. Local wound car e per podiatry recommendations. We will change Zosyn to oral levofloxacin. Dictated By: VANI BORREGO ENGRAVER LETTERING for TONY SMILEY MD NI/NTS Conf#: [id number] DID#: [id number] CC: MARINA LEON MD;*EndCC*
[2017-07-10 20:00] VITALS: BP 102/51; RESP 21
[2017-07-10] MEDS: ATENOLOL 100 MG TAB PO SCH (21:00)
[2017-07-10] MEDS: ATORVASTATIN 10 MG TAB PO SCH (21:05)
[2017-07-11] MEDS: VANCOMYCIN 1 GM in NS 250 ML IVPB SCH ×2 (00:26→11:51)
[2017-07-11 02:00] VITALS: BP 115/49; RESP 21
[2017-07-11 05:47] LABS: ABNORMAL IP MESSAGE 1; BASOPHIL # 0.1 10^3/ul (0.0-0.1); BASOPHILS % 0.6 % (0.0-2.0); EOSINOPHILS # 0.3 10^3/ul (0.0-0.5); EOSINOPHILS % 3.6 % (0.0-7.0); HEMATOCRIT 42.8 % (42.0-52.0); HEMOGLOBIN 14.6 g/dl (14.0-18.0); LYMPHOCYTES # 0.4 10^3/ul (0.8-2.9); LYMPHOCYTES % 5.4 % (15.0-51.0); MEAN CORPUSCULAR HEMOGLOBIN 31.3 pg (29.0-33.0); MEAN CORPUSCULAR HGB CONC 34.1 g/dl (32.0-37.0); MEAN CORPUSCULAR VOLUME 91.6 fl (82.0-101.0); MEAN PLATELET VOLUME 10.7 fl (7.4-10.4); MONOCYTE # 0.8 10^3/ul (0.3-0.9); MONOCYTES % 9.6 % (0.0-11.0); NEUTROPHIL # 6.5 10^3/ul (1.6-7.5); NEUTROPHILS % 80.3 % (39.0-77.0); PLATELET COUNT 166 10^3/UL (140-415); POSITIVE DIFF @See below; RED BLOOD COUNT 4.67 10^6/ul (4.70-6.10); RED CELL DISTRIBUTION WIDTH 13.1 % (11.5-14.5); WHITE BLOOD COUNT 8.1 10^3/ul (4.8-10.8)
[2017-07-11 06:14] LABS: ALBUMIN 3.5 g/dl (3.3-4.9); CALCIUM 8.7 mg/dl (8.4-10.2); CREATININE 1.23 mg/dl (0.61-1.24); MAGNESIUM 1.8 mg/dl (1.7-2.5); PHOSPHORUS 3.3 mg/dl (2.5-4.9)
[2017-07-11 07:36] VITALS: BP 114/59; RESP 19
[2017-07-11] MEDS: CHLORTHALIDONE 25 MG TAB PO SCH (08:35)
[2017-07-11] MEDS: LISINOPRIL 20 MG TAB PO SCH ×2 (09:00→21:34)
[2017-07-11 09:45] VITALS: BP 101/53; PULSE 93; RESP 18
--- NOTE | 2017-07-11 11:42 | PN ---
Date/Time of Note Date/Time of Note DATE: 07/11/17 TIME: 11:42 Assessment/Plan VTE Prophylaxis VTE Prophylaxis Intervention: SCD's Lines/Catheters IV Catheter Type (from Nrsg): Peripheral IV Assessment/Plan Assessment/Plan 1. Right 1st and 2nd toe infection- stable - Podiatry on board and recommendations appreciated. Will need antibiotics and awaiting cultures for final decision on antibiotics. recommending patient go to SNF if needing IV antibiotics but patient would prefer to go home. - Xray negative for OM and recent MRI shows no signs of OM as well - ID on board and recommendations appreciated. Will continue current treatment and awaiting final culture results - Wound care per podiatry 2. hypertension - Continue patient's home medication 3. Hyperlipidemia - continue on statin - LDL within normal limits 4. Morbid obesity - A1c 5.9 5. Disposition - Continue monitoring on med/surg - Antibiotics per ID recommendations. Wound cultures still pending - Hopefully can be d/c on PO antibiotics given patient refusing SNF placement and per CM will be an issues getting home health set up for longer term IV antibiotics. Subjective 24 Hr Interval Summary Free Text/Dictation Patient doing well and no acute issues. No overnight events. Dressing to right foot changed this am and no srinath discharge appreciated. Area looks dry and scabbed. Patient hoping to be discharged on PO antibiotics since would like to return home not SNF Exam/Review of Systems Vital Signs Vitals Vital Signs Date Time Temp Pulse Resp B/P Pulse Ox O2 Delivery O2 Flow Rate FiO2 07/11/17 09:45 99.5 93 18 101/53 07/11/17 07:36 93 07/08/17 21:00 Room Air Intake and Output 07/10/17 07/10/17 07/11/17 14:59 22:59 06:59 Intake Total 300 ml 600 ml 650 ml Balance 300 ml 600 ml 650 ml Exam General: morbidly obese, lying in bed in no acute distress HEENT: Atraumatic, normocephalic. The pupils are equal, round and reactive. Extraocular motor are intact Neck: Supple Lungs: Clear to auscultation bilaterally no crackles rales or wheezing Heart: Normal S1-S2, Regular rhythm and rate. No murmur, S3, or S4 Abdomen: Soft , nontender, nondistended , bowel sounds are present. No guarding no rebound tenderness, Extremities: Chronic skin changes changes noted lower extremities level of the shins greater on the right. Neurologic: Normal mental status, speech normal, cranial nerves II through XII are intact, motor and sensory are intact, no focal weakness Skin: venous stasis changes RLE. Scab present on 1st and 2nd toe with no discharge appreciated. Results Result Diagram: 07/11/17 0506 07/11/17 0506 Results 24 hrs Laboratory Tests Test 07/10/17 23:22 07/11/17 05:06 Vancomycin Level Trough 11.2 White Blood Count 8.1 Red Blood Count 4.67 L Hemoglobin 14.6 Hematocrit 42.8 Mean Corpuscular Volume 91.6 Mean Corpuscular Hemoglobin 31.3 Mean Corpuscular Hemoglobin Concent 34.1 Red Cell Distribution Width 13.1 Platelet Count 166 Mean Platelet Volume 10.7 H Neutrophils % 80.3 H Lymphocytes % 5.4 L Monocytes % 9.6 Eosinophils % 3.6 Basophils % 0.6 Nucleated Red Blood Cells % 0.0 Neutrophils # 6.5 Lymphocytes # 0.4 L Monocytes # 0.8 Eosinophils # 0.3 Basophils # 0.1 Nucleated Red Blood Cells # 0.0 Sodium Level 136 Potassium Level 4.0 Chloride Level 98 Carbon Dioxide Level 29 Anion Gap 13 Blood Urea Nitrogen 28 H Creatinine 1.23 Glucose Level 108 Calcium Level 8.7 Phosphorus Level 3.3 Magnesium Level 1.8 Albumin 3.5 Medications Medications Current Medications Ondansetron HCl (Zofran Tab) 4 mg Q6H PRN PO NAUSEA AND/OR VOMITING; Start at 21:30 Acetaminophen (Tylenol Tab) 650 mg Q6H PRN PO PAIN LEVEL 1-3 OR FEVER Last administered on 07/11/17 08:43; Admin Dose 650 MG; Start 07/08/17 at 21:30 Acetaminophen/ Hydrocodone Bitart ([place] (5/325)) 1 tab Q6H PRN PO MODERATE PAIN LEVEL 4-6; Start 07/08/17 at 21:30 Acetaminophen/ Hydrocodone Bitart ([place] (5/325)) 2 tab Q6H PRN PO SEVERE PAIN LEVEL 7-10; Start 07/08/17 at 21:30 Docusate Sodium (Colace) 100 mg Q12H PRN PO CONSTIPATION Last administered on 07/10/17 19:32; Admin Dose 100 MG; Start 07/08/17 at 21:30 Bisacodyl (Dulcolax) 5 mg DAILY PRN PO CONSTIPATION; Start 07/08/17 at 21:30 Atenolol (Tenormin) 100 mg QHS PO Last administered on 07/09/17 23:10; Admin Dose 100 MG; Start 07/09/17 at 21:00 Chlorthalidone (Hygroton) 25 mg QAM PO Last administered on 07/11/17 08:35; Admin Dose 25 MG; Start 07/09/17 at 09:00 Lisinopril (Zestril) 40 mg BID PO Last administered on 07/10/17 09:39; Admin Dose 40 MG; Start 07/09/17 at 09:00 Atorvastatin Calcium 10 mg 10 mg DAILY@21 PO Last administered on 07/10/17 21 :05; Admin Dose 10 MG; Start 07/09/17 at 21:00 Vancomycin HCl (Vancocin) 250 ml @ 125 mls/hr Q12H IVPB Last administered on 07/11/17 00:26; Admin Dose 125 MLS/HR; Start 07/10/17 at 00:00 Levofloxacin (Levaquin) 500 mg DAILY@15 PO ; Start 07/11/17 at 15:00 KEYON HARPER MD Jul 11, 2017 11:42
--- NOTE | 2017-07-11 12:13 | CONS ---
Date/Time of Note Date/Time of Note DATE: 07/11/17 TIME: 12:13 Assessment/Plan Assessment/Plan Chief Complaint/Hosp Course ID PROGRESS NOTE CURRENT ABX: =>Vanco IV + Levaquin #2 s/p Zosyn * A/A/O sitting up on edge of bed w/bilateral feet down -- Tmax 100.3, WBC 8.1 , * No osteomyelitis on X-ray -- He is hoping he can DC home on PO ABX * 07/10/17 WOUND CX: WOUND CULTURE Preliminary Culture too young to evaluate PHYSICAL EXAMINATION: GENERAL: Afebrile, VSS, NAD - super morbid obese HEENT: Unremarkable NECK: Full ROM CHEST: Equal chest rise bilaterally, no distress HEART: RRR pulse ABDOMEN: Soft, large-obese EXT: Warm, moves extremities, With right lower extremity edema, erythema, second and first toe wounds and swelling. SKIN: No rash, no diaphoresis ID ASSESSMENT: 62 yo obese M admit with: 1. SIRS w/low grade temperatures 2. Right lower extremity cellulitis with second and first toe wounds. * 07/10/17 WOUND CX: WOUND CULTURE Preliminary Culture too young to evaluate 3. Chronic BLEXT venous stasis edema 4. Hypertension. ( )MRSA Nares ABX ALLERGIES: NKDA INVASIVES: PIV CURRENT ABX: =>Vanco IV + Levaquin #2 s/p Zosyn ID RECOMMENDATIONS/PLAN: 1. Continue current ABX -- Awaiting final micro results prior to final ABX recommendations 2. No osteomyelitis on X-ray -- He is hoping he can DC home on PO ABX . Problems: Consultation Date/Type/Reason Admit Date/Time Jul 08, 2017 at 20:30 Initial Consult Date 07/09/17 Type of Consultation: ID Exam/Review of Systems Vital Signs Vitals Vital Signs Date Time Temp Pulse Resp B/P Pulse Ox O2 Delivery O2 Flow Rate FiO2 07/11/17 09:45 99.5 93 18 101/53 07/11/17 07:36 93 07/08/17 21:00 Room Air Intake and Output 07/10/17 07/10/17 07/11/17 15:00 23:00 07:00 Intake Total 300 ml 600 ml 650 ml Balance 300 ml 600 ml 650 ml Results Result Diagram: 07/11/17 0506 07/11/17 0506 Results 24 hrs Laboratory Tests Test 07/10/17 23:22 07/11/17 05:06 Vancomycin Level Trough 11.2 White Blood Count 8.1 Red Blood Count 4.67 L Hemoglobin 14.6 Hematocrit 42.8 Mean Corpuscular Volume 91.6 Mean Corpuscular Hemoglobin 31.3 Mean Corpuscular Hemoglobin Concent 34.1 Red Cell Distribution Width 13.1 Platelet Count 166 Mean Platelet Volume 10.7 H Neutrophils % 80.3 H Lymphocytes % 5.4 L Monocytes % 9.6 Eosinophils % 3.6 Basophils % 0.6 Nucleated Red Blood Cells % 0.0 Neutrophils # 6.5 Lymphocytes # 0.4 L Monocytes # 0.8 Eosinophils # 0.3 Basophils # 0.1 Nucleated Red Blood Cells # 0.0 Sodium Level 136 Potassium Level 4.0 Chloride Level 98 Carbon Dioxide Level 29 Anion Gap 13 Blood Urea Nitrogen 28 H Creatinine 1.23 Glucose Level 108 Calcium Level 8.7 Phosphorus Level 3.3 Magnesium Level 1.8 Albumin 3.5 Medications Medications Current Medications Ondansetron HCl (Zofran Tab) 4 mg Q6H PRN PO NAUSEA AND/OR VOMITING; Start at 21:30 Acetaminophen (Tylenol Tab) 650 mg Q6H PRN PO PAIN LEVEL 1-3 OR FEVER Last administered on 07/11/17 08:43; Admin Dose 650 MG; Start 07/08/17 at 21:30 Acetaminophen/ Hydrocodone Bitart ([place] (5/325)) 1 tab Q6H PRN PO MODERATE PAIN LEVEL 4-6; Start 07/08/17 at 21:30 Acetaminophen/ Hydrocodone Bitart ([place] (5/325)) 2 tab Q6H PRN PO SEVERE PAIN LEVEL 7-10; Start 07/08/17 at 21:30 Docusate Sodium (Colace) 100 mg Q12H PRN PO CONSTIPATION Last administered on 07/10/17 19:32; Admin Dose 100 MG; Start 07/08/17 at 21:30 Bisacodyl (Dulcolax) 5 mg DAILY PRN PO CONSTIPATION; Start 07/08/17 at 21:30 Atenolol (Tenormin) 100 mg QHS PO Last administered on 07/09/17 23:10; Admin Dose 100 MG; Start 07/09/17 at 21:00 Chlorthalidone (Hygroton) 25 mg QAM PO Last administered on 07/11/17 08:35; Admin Dose 25 MG; Start 07/09/17 at 09:00 Lisinopril (Zestril) 40 mg BID PO Last administered on 07/10/17 09:39; Admin Dose 40 MG; Start 07/09/17 at 09:00 Atorvastatin Calcium 10 mg 10 mg DAILY@21 PO Last administered on 07/10/17 21 :05; Admin Dose 10 MG; Start 07/09/17 at 21:00 Vancomycin HCl (Vancocin) 250 ml @ 125 mls/hr Q12H IVPB Last administered on 07/11/17 11:51; Admin Dose 125 MLS/HR; Start 07/10/17 at 00:00 Levofloxacin (Levaquin) 500 mg DAILY@15 PO ; Start 07/11/17 at 15:00 LEODAN KRISHNAN NP Jul 11, 2017 12:13
[2017-07-11 14:00] VITALS: BP 116/59; RESP 18
[2017-07-11] MEDS: LEVOFLOXACIN 500 MG TAB PO SCH (14:12)
[2017-07-11 20:00] VITALS: BP 113/61; RESP 19
[2017-07-11] MEDS: ATORVASTATIN 10 MG TAB PO SCH (20:28)
[2017-07-11 21:30] VITALS: BP 129/58; PULSE 97
[2017-07-11] MEDS: ATENOLOL 100 MG TAB PO SCH (21:34)
[2017-07-12] MEDS: VANCOMYCIN 1 GM in NS 250 ML IVPB SCH ×2 (00:13→11:32)
[2017-07-12 02:00] VITALS: BP_SYST 137; BP_SYST 138; BP_DIAS 64; BP_DIAS 72; RESP 20
[2017-07-12 06:11] LABS: ABNORMAL IP MESSAGE 1; BASOPHILS % 0.5 % (0.0-2.0); EOSINOPHILS # 0.4 10^3/ul (0.0-0.5); EOSINOPHILS % 4.7 % (0.0-7.0); HEMATOCRIT 42.1 % (42.0-52.0); HEMOGLOBIN 14.1 g/dl (14.0-18.0); LYMPHOCYTES # 0.5 10^3/ul (0.8-2.9); LYMPHOCYTES % 5.8 % (15.0-51.0); MEAN CORPUSCULAR HEMOGLOBIN 30.5 pg (29.0-33.0); MEAN CORPUSCULAR HGB CONC 33.5 g/dl (32.0-37.0); MEAN CORPUSCULAR VOLUME 91.1 fl (82.0-101.0); MEAN PLATELET VOLUME 10.4 fl (7.4-10.4); MONOCYTE # 1.1 10^3/ul (0.3-0.9); MONOCYTES % 13.8 % (0.0-11.0); NEUTROPHILS % 74.7 % (39.0-77.0); PLATELET COUNT 154 10^3/UL (140-415); POSITIVE DIFF @See below; RED BLOOD COUNT 4.62 10^6/ul (4.70-6.10); RED CELL DISTRIBUTION WIDTH 13.1 % (11.5-14.5)
[2017-07-12 07:25] LABS: ALBUMIN 3.4 g/dl (3.3-4.9); CALCIUM 8.3 mg/dl (8.4-10.2); CREATININE 1.29 mg/dl (0.61-1.24); MAGNESIUM 1.8 mg/dl (1.7-2.5); PHOSPHORUS 3.1 mg/dl (2.5-4.9); POTASSIUM 3.8 mmol/L (3.5-5.1)
[2017-07-12 08:14] VITALS: BP 126/57; RESP 20
[2017-07-12] MEDS: CHLORTHALIDONE 25 MG TAB PO SCH (08:37)
[2017-07-12] MEDS: LISINOPRIL 20 MG TAB PO SCH ×2 (08:37→21:00)
[2017-07-12] MEDS: SOD CHLORIDE 0.9% 1,000 ML IV SCH ×2 (11:30→23:28)
[2017-07-12] MEDS: LEVOFLOXACIN 500 MG TAB PO SCH (14:24)
[2017-07-12 14:30] VITALS: BP 128/57; RESP 20
--- NOTE | 2017-07-12 15:04 | CONS ---
Date/Time of Note Date/Time of Note DATE: 07/12/17 TIME: 15:03 Assessment/Plan Assessment/Plan Chief Complaint/Hosp Course SUBJECTIVE: No acute changes. The patient is alert, feels good, no fevers. MICROBIOLOGY: Wound cultures growing staph species DIAGNOSTICS: X-ray of right foot revealed no evidence of osteomyelitis. ANTIMICROBIALS: The patient is on IV vancomycin and Levaquin PHYSICAL EXAMINATION: GENERAL: This is a morbidly obese elderly man who is awake, in no distress. HEENT: Head atraumatic, normocephalic. Sclerae anicteric. NECK: Supple. CHEST: Rise symmetrical. Breath sounds clear. HEART: S1, S2. ABDOMEN: Soft, bowel tones present. EXTREMITIES: With right lower extremity edema, erythema, second and first toe wounds and swelling. ASSESSMENT: 1. Right lower extremity cellulitis with second and first toe wounds. 2. Morbid obesity. 3. Hypertension. 4. Chronic venous stasis. PLAN: The patient remains stable. Continue antibiotics, local wound care per podiatry, follow final sensitivities Discussed with staff Problems: Consultation Date/Type/Reason Admit Date/Time Jul 08, 2017 at 20:30 Initial Consult Date 07/09/17 Type of Consultation: ID Exam/Review of Systems Vital Signs Vitals Vital Signs Date Time Temp Pulse Resp B/P Pulse Ox O2 Delivery O2 Flow Rate FiO2 07/12/17 08:14 99.8 71 20 126/57 91 07/08/17 21:00 Room Air Intake and Output 07/11/17 07/11/17 07/12/17 15:00 23:00 07:00 Intake Total 1450 ml 250 ml Balance 1450 ml 250 ml Results Result Diagram: 07/12/17 0537 07/12/17 0537 Results 24 hrs Laboratory Tests Test 07/12/17 05:37 White Blood Count 8.0 Red Blood Count 4.62 L Hemoglobin 14.1 Hematocrit 42.1 Mean Corpuscular Volume 91.1 Mean Corpuscular Hemoglobin 30.5 Mean Corpuscular Hemoglobin Concent 33.5 Red Cell Distribution Width 13.1 Platelet Count 154 Mean Platelet Volume 10.4 Neutrophils % 74.7 Lymphocytes % 5.8 L Monocytes % 13.8 H Eosinophils % 4.7 Basophils % 0.5 Nucleated Red Blood Cells % 0.0 Neutrophils # 6.0 Lymphocytes # 0.5 L Monocytes # 1.1 H Eosinophils # 0.4 Basophils # 0.0 Nucleated Red Blood Cells # 0.0 Sodium Level 135 Potassium Level 3.8 Chloride Level 96 L Carbon Dioxide Level 29 Anion Gap 14 Blood Urea Nitrogen 27 H Creatinine 1.29 H Glucose Level 109 Calcium Level 8.3 L Phosphorus Level 3.1 Magnesium Level 1.8 Albumin 3.4 Medications Medications Current Medications Ondansetron HCl (Zofran Tab) 4 mg Q6H PRN PO NAUSEA AND/OR VOMITING; Start at 21:30 Acetaminophen (Tylenol Tab) 650 mg Q6H PRN PO PAIN LEVEL 1-3 OR FEVER Last administered on 07/11/17 08:43; Admin Dose 650 MG; Start 07/08/17 at 21:30 Acetaminophen/ Hydrocodone Bitart ([place] (5/325)) 1 tab Q6H PRN PO MODERATE PAIN LEVEL 4-6; Start 07/08/17 at 21:30 Acetaminophen/ Hydrocodone Bitart ([place] (5/325)) 2 tab Q6H PRN PO SEVERE PAIN LEVEL 7-10; Start 07/08/17 at 21:30 Docusate Sodium (Colace) 100 mg Q12H PRN PO CONSTIPATION Last administered on 07/10/17 19:32; Admin Dose 100 MG; Start 07/08/17 at 21:30 Bisacodyl (Dulcolax) 5 mg DAILY PRN PO CONSTIPATION Last administered on 06:14; Admin Dose 5 MG; Start 07/08/17 at 21:30 Atenolol (Tenormin) 100 mg QHS PO Last administered on 07/11/17 21:34; Admin Dose 100 MG; Start 07/09/17 at 21:00 Chlorthalidone (Hygroton) 25 mg QAM PO Last administered on 07/12/17 08:37; Admin Dose 25 MG; Start 07/09/17 at 09:00 Lisinopril (Zestril) 40 mg BID PO Last administered on 07/12/17 08:37; Admin Dose 40 MG; Start 07/09/17 at 09:00 Atorvastatin Calcium 10 mg 10 mg DAILY@21 PO Last administered on 07/11/17 20 :28; Admin Dose 10 MG; Start 07/09/17 at 21:00 Vancomycin HCl (Vancocin) 250 ml @ 125 mls/hr Q12H IVPB Last administered on 07/12/17 11:32; Admin Dose 125 MLS/HR; Start 07/10/17 at 00:00 Levofloxacin 500 mg 500 mg DAILY@15 PO Last administered on 07/12/17 14:24; Admin Dose 500 MG; Start 07/11/17 at 15:00 Sodium Chloride (NS) 1,000 ml @ 100 mls/hr Q10H IV Last administered on 11:30; Admin Dose 100 MLS/HR; Start 07/12/17 at 11:30 VANI BORREGO NP Jul 12, 2017 15:04
--- NOTE | 2017-07-12 17:14 | PN ---
Date/Time of Note Date/Time of Note DATE: 07/12/17 TIME: 17:10 Assessment/Plan VTE Prophylaxis VTE Prophylaxis Intervention: SCD's Lines/Catheters IV Catheter Type (from Nrs): [place] Assessment/Plan Chief Complaint/Hosp Course Subjective No acute complaints Objective Physical exam General: Patient is laying in bed and answers questions appropriately Mentation: Patient is alert and oriented 4, Head: Normocephalic atraumatic Eyes: EOMI, pupils reactive to light Neck: Supple, nontender, midline Respiratory: Clear to auscultation bilaterally Cardiovascular: regular rate, no obvious murmurs Gastrointestinal: non-tender to palpation, bowel sounds heard. Neurological: Moves all extremities spontaneously Skin: R foot CDI, bandaged A/P Right 1st and 2nd toe infection- stable - Podiatry on board and recommendations appreciated. Will need antibiotics and awaiting cultures for final decision on antibiotics. recommending patient go to SNF if needing IV antibiotics but patient would prefer to go home. - Xray negative for OM and recent MRI shows no signs of OM as well - ID on board and recommendations appreciated. Will continue current treatment and awaiting final culture results - Wound care per podiatry hypertension - Continue patient's home medication Hyperlipidemia - continue on statin - LDL within normal limits Morbid obesity - A1c 5.9 Disposition - Continue monitoring on med/surg - Antibiotics per ID recommendations. Wound cultures still pending - Hopefully can be d/c on PO antibiotics given patient refusing SNF placement and per CM will be an issues getting home health set up for longer term IV antibiotics. Problems: Exam/Review of Systems Vital Signs Vitals Vital Signs Date Time Temp Pulse Resp B/P Pulse Ox O2 Delivery O2 Flow Rate FiO2 07/12/17 14:30 98.4 67 20 128/57 93 07/08/17 21:00 Room Air Intake and Output 07/11/17 07/11/17 07/12/17 15:00 23:00 07:00 Intake Total 1450 ml 250 ml Balance 1450 ml 250 ml Results Result Diagram: 07/12/17 0537 07/12/17 0537 Results 24 hrs Laboratory Tests Test 07/12/17 05:37 White Blood Count 8.0 Red Blood Count 4.62 L Hemoglobin 14.1 Hematocrit 42.1 Mean Corpuscular Volume 91.1 Mean Corpuscular Hemoglobin 30.5 Mean Corpuscular Hemoglobin Concent 33.5 Red Cell Distribution Width 13.1 Platelet Count 154 Mean Platelet Volume 10.4 Neutrophils % 74.7 Lymphocytes % 5.8 L Monocytes % 13.8 H Eosinophils % 4.7 Basophils % 0.5 Nucleated Red Blood Cells % 0.0 Neutrophils # 6.0 Lymphocytes # 0.5 L Monocytes # 1.1 H Eosinophils # 0.4 Basophils # 0.0 Nucleated Red Blood Cells # 0.0 Sodium Level 135 Potassium Level 3.8 Chloride Level 96 L Carbon Dioxide Level 29 Anion Gap 14 Blood Urea Nitrogen 27 H Creatinine 1.29 H Glucose Level 109 Calcium Level 8.3 L Phosphorus Level 3.1 Magnesium Level 1.8 Albumin 3.4 Medications Medications Current Medications Ondansetron HCl (Zofran Tab) 4 mg Q6H PRN PO NAUSEA AND/OR VOMITING; Start at 21:30 Acetaminophen (Tylenol Tab) 650 mg Q6H PRN PO PAIN LEVEL 1-3 OR FEVER Last administered on 07/11/17 08:43; Admin Dose 650 MG; Start 07/08/17 at 21:30 Acetaminophen/ Hydrocodone Bitart ([place] (5/325)) 1 tab Q6H PRN PO MODERATE PAIN LEVEL 4-6; Start 07/08/17 at 21:30 Acetaminophen/ Hydrocodone Bitart ([place] (5/325)) 2 tab Q6H PRN PO SEVERE PAIN LEVEL 7-10; Start 07/08/17 at 21:30 Docusate Sodium (Colace) 100 mg Q12H PRN PO CONSTIPATION Last administered on 07/10/17 19:32; Admin Dose 100 MG; Start 07/08/17 at 21:30 Bisacodyl (Dulcolax) 5 mg DAILY PRN PO CONSTIPATION Last administered on 06:14; Admin Dose 5 MG; Start 07/08/17 at 21:30 Atenolol (Tenormin) 100 mg QHS PO Last administered on 07/11/17 21:34; Admin Dose 100 MG; Start 07/09/17 at 21:00 Chlorthalidone (Hygroton) 25 mg QAM PO Last administered on 07/12/17 08:37; Admin Dose 25 MG; Start 07/09/17 at 09:00 Lisinopril (Zestril) 40 mg BID PO Last administered on 07/12/17 08:37; Admin Dose 40 MG; Start 07/09/17 at 09:00 Atorvastatin Calcium 10 mg 10 mg DAILY@21 PO Last administered on 07/11/17 20 :28; Admin Dose 10 MG; Start 07/09/17 at 21:00 Vancomycin HCl (Vancocin) 250 ml @ 125 mls/hr Q12H IVPB Last administered on 07/12/17 11:32; Admin Dose 125 MLS/HR; Start 07/10/17 at 00:00 Levofloxacin 500 mg 500 mg DAILY@15 PO Last administered on 07/12/17 14:24; Admin Dose 500 MG; Start 07/11/17 at 15:00 Sodium Chloride (NS) 1,000 ml @ 100 mls/hr Q10H IV Last administered on 11:30; Admin Dose 100 MLS/HR; Start 07/12/17 at 11:30 EDDIE PHILLIPS Jul 12, 2017 17:14
[2017-07-12 20:00] VITALS: BP 98/50; RESP 19
[2017-07-12] MEDS: ATENOLOL 100 MG TAB PO SCH (21:00)
[2017-07-12] MEDS: ATORVASTATIN 10 MG TAB PO SCH (21:27)
[2017-07-13] MEDS: VANCOMYCIN 1 GM in NS 250 ML IVPB SCH (00:35)
[2017-07-13 01:54] VITALS: BP 91/53; RESP 18
[2017-07-13 05:47] LABS: ABNORMAL IP MESSAGE 1; HEMATOCRIT 41.1 % (42.0-52.0); HEMOGLOBIN 13.8 g/dl (14.0-18.0); MEAN CORPUSCULAR HEMOGLOBIN 30.6 pg (29.0-33.0); MEAN CORPUSCULAR HGB CONC 33.6 g/dl (32.0-37.0); MEAN CORPUSCULAR VOLUME 91.1 fl (82.0-101.0); MEAN PLATELET VOLUME 10.7 fl (7.4-10.4); PLATELET COUNT 148 10^3/UL (140-415); POSITIVE DIFF @See below; RED BLOOD COUNT 4.51 10^6/ul (4.70-6.10); RED CELL DISTRIBUTION WIDTH 13.1 % (11.5-14.5)
[2017-07-13 06:14] LABS: ALBUMIN 3.3 g/dl (3.3-4.9); CALCIUM 8.3 mg/dl (8.4-10.2); CREATININE 1.81 mg/dl (0.61-1.24); PHOSPHORUS 3.6 mg/dl (2.5-4.9)
[2017-07-13 07:27] LABS: ANISOCYTOSIS 1+ (0-0); EOSINOPHILS % (M) 6 % (0-7); METAMYELOCYTES %M 1 % (0-0); MICROCYTOSIS 1+ (0-0); MONOCYTES % (M) 15 % (0-11); MYELOCYTES % (M) 1 % (0-0); PLATELET ESTIMATE NORMAL; POLYCHROMASIA 1+ (0-0); REACTIVE LYMPHOCYTES% (M) 5 % (0-0)
[2017-07-13 07:50] VITALS: BP 118/55; RESP 18
[2017-07-13] MEDS: CHLORTHALIDONE 25 MG TAB PO SCH (08:48)
[2017-07-13] MEDS: LISINOPRIL 20 MG TAB PO SCH (08:48)
[2017-07-13] MEDS: SOD CHLORIDE 0.9% 1,000 ML IV SCH (08:48)
--- NOTE | 2017-07-13 10:27 | CONS ---
Date/Time of Note Date/Time of Note DATE: 07/13/17 TIME: 10:26 Assessment/Plan Assessment/Plan Chief Complaint/Hosp Course SUBJECTIVE: No acute changes. The patient is alert, feels good, no fevers. MICROBIOLOGY: Wound cultures growing staph species DIAGNOSTICS: X-ray of right foot revealed no evidence of osteomyelitis. ANTIMICROBIALS: The patient is on IV vancomycin and Levaquin PHYSICAL EXAMINATION: GENERAL: This is a morbidly obese elderly man who is awake, in no distress. HEENT: Head atraumatic, normocephalic. Sclerae anicteric. NECK: Supple. CHEST: Rise symmetrical. Breath sounds clear. HEART: S1, S2. ABDOMEN: Soft, bowel tones present. EXTREMITIES: With right lower extremity edema, erythema, second and first toe wounds and swelling. ASSESSMENT: 1. Right lower extremity cellulitis with second and first toe wounds. 2. Morbid obesity. 3. Hypertension. 4. Chronic venous stasis. PLAN: The patient remains stable. Will change antibiotics to oral Doxycycline, continue local wound care per podiatry Discussed with staff Problems: Consultation Date/Type/Reason Admit Date/Time Jul 08, 2017 at 20:30 Initial Consult Date 07/09/17 Type of Consultation: ID Exam/Review of Systems Vital Signs Vitals Vital Signs Date Time Temp Pulse Resp B/P Pulse Ox O2 Delivery O2 Flow Rate FiO2 07/13/17 07:50 98.2 76 18 118/55 90 Intake and Output 07/12/17 07/12/17 07/13/17 14:59 22:59 06:59 Intake Total 250 ml 1820 ml 1650 ml Balance 250 ml 1820 ml 1650 ml Results Result Diagram: 07/13/17 0503 07/13/17 0503 Results 24 hrs Laboratory Tests Test 07/13/17 05:03 07/13/17 07:54 White Blood Count 7.0 Red Blood Count 4.51 L Hemoglobin 13.8 L Hematocrit 41.1 L Mean Corpuscular Volume 91.1 Mean Corpuscular Hemoglobin 30.6 Mean Corpuscular Hemoglobin Concent 33.6 Red Cell Distribution Width 13.1 Platelet Count 148 Mean Platelet Volume 10.7 H Neutrophils % Segmented Neutrophils % (Manual) 61 Band Neutrophils % (Manual) 8 H Lymphocytes % Lymphocytes % (Manual) 3 L Reactive Lymphocytes % (Manual) 5 H Monocytes % Monocytes % (Manual) 15 H Eosinophils % Eosinophils % (Manual) 6 Basophils % Metamyelocytes % (manual) 1 H Myelocytes % (Manual) 1 H Nucleated Red Blood Cells % 0.0 Neutrophils # Neutrophils # (Manual) 4.3 Band Neutrophils # 0.5 Absolute Lymphocytes (Manual) 0.2 L Lymphocytes # Reactive Lymphocytes # 0.3 H Monocytes # Absolute Monocytes (Manual) 1.0 H Eosinophils # Basophils # Metamyelocytes # 0.0 Myelocytes # 0.0 Nucleated Red Blood Cells # Platelet Estimate NORMAL Polychromasia 1+ Anisocytosis 1+ Microcytosis 1+ Sodium Level 133 L Potassium Level 4.0 Chloride Level 96 L Carbon Dioxide Level 30 Anion Gap 11 Blood Urea Nitrogen 37 H Creatinine 1.81 H Glucose Level 101 Calcium Level 8.3 L Phosphorus Level 3.6 Magnesium Level 2.0 Albumin 3.3 Bedside Glucose 103 Medications Medications Current Medications Ondansetron HCl (Zofran Tab) 4 mg Q6H PRN PO NAUSEA AND/OR VOMITING; Start at 21:30 Acetaminophen (Tylenol Tab) 650 mg Q6H PRN PO PAIN LEVEL 1-3 OR FEVER Last administered on 07/11/17 08:43; Admin Dose 650 MG; Start 07/08/17 at 21:30 Acetaminophen/ Hydrocodone Bitart ([place] (5/325)) 1 tab Q6H PRN PO MODERATE PAIN LEVEL 4-6; Start 07/08/17 at 21:30 Acetaminophen/ Hydrocodone Bitart ([place] (5/325)) 2 tab Q6H PRN PO SEVERE PAIN LEVEL 7-10; Start 07/08/17 at 21:30 Docusate Sodium (Colace) 100 mg Q12H PRN PO CONSTIPATION Last administered on 07/10/17 19:32; Admin Dose 100 MG; Start 07/08/17 at 21:30 Bisacodyl (Dulcolax) 5 mg DAILY PRN PO CONSTIPATION Last administered on 06:14; Admin Dose 5 MG; Start 07/08/17 at 21:30 Atenolol (Tenormin) 100 mg QHS PO Last administered on 07/11/17 21:34; Admin Dose 100 MG; Start 07/09/17 at 21:00 Chlorthalidone (Hygroton) 25 mg QAM PO Last administered on 07/13/17 08:48; Admin Dose 25 MG; Start 07/09/17 at 09:00 Lisinopril (Zestril) 40 mg BID PO Last administered on 07/13/17 08:48; Admin Dose 40 MG; Start 07/09/17 at 09:00 Atorvastatin Calcium 10 mg 10 mg DAILY@21 PO Last administered on 07/12/17 21 :27; Admin Dose 10 MG; Start 07/09/17 at 21:00 Vancomycin HCl (Vancocin) 250 ml @ 125 mls/hr Q12H IVPB Last administered on 07/13/17 00:35; Admin Dose 125 MLS/HR; Start 07/10/17 at 00:00 Levofloxacin 500 mg 500 mg DAILY@15 PO Last administered on 07/12/17 14:24; Admin Dose 500 MG; Start 07/11/17 at 15:00 Sodium Chloride (NS) 1,000 ml @ 100 mls/hr Q10H IV Last administered on 08:48; Admin Dose 100 MLS/HR; Start 07/12/17 at 11:30 Miscellaneous Information (*Rx Drug Level Order Reminder*) 1 ONCE ONCE XX ; Start 07/13/17 at 11:00; Stop 07/13/17 at 11:01 VANI BORREGO NP Jul 13, 2017 10:27
[2017-07-13 14:35] VITALS: BP 99/50; RESP 20
--- NOTE | 2017-07-13 15:45 | RADRPT ---
PROCEDURE: Renal US. CLINICAL INDICATION: FAM TECHNIQUE: Multiple sonographic images of the kidneys were obtained. The images were reviewed on a PACS workstation. COMPARISON: No prior studies are available for comparison. FINDINGS: Limited study secondary to patient body habitus. The kidneys are well visualized. The right kidney measures 13.9 cm. There is a 1.5 cm simple cyst in the mid pole of the right kidney. The left kidney measures 14.7 cm . There are no focal areas of a bnormal echogenicity. There is no evidence for obstructive uropathy. There is a 5.8 cm complex cyst in the lower pole left kidney with internal debris and possible septations. Further evaluation is re commended with a CT of the abdomen preferably with IV contrast if possible. The bladder is partially distended. IMPRESSION: Limited study secondary to patient body habitus. No evidence of hydronephrosis. 5.8 cm cyst in the lower pole left kidney with internal debris and and possible septations. Recommen d further evaluation with a CT scan of the abdomen with IV contrast and possible. RPTAT: GG .Rebel Chiu MD, Date Time Electronically viewed and signed by .Rebel Chiu MD, on 07/13/2017 15:44 .G/
--- NOTE | 2017-07-13 16:32 | PN ---
Date/Time of Note Date/Time of Note DATE: 07/13/17 TIME: 16:29 Assessment/Plan VTE Prophylaxis VTE Prophylaxis Intervention: ambulation, SCD's Lines/Catheters IV Catheter Type (from Nrsg): Peripheral IV Assessment/Plan Chief Complaint/Hosp Course Subjective No acute complaints Objective Physical exam General: Patient is laying in bed and answers questions appropriately Mentation: Patient is alert and oriented 4, Head: Normocephalic atraumatic Eyes: EOMI, pupils reactive to light Neck: Supple, nontender, midline Respiratory: Clear to auscultation bilaterally Cardiovascular: regular rate, no obvious murmurs Gastrointestinal: non-tender to palpation, bowel sounds heard. Neurological: Moves all extremities spontaneously Skin: R foot CDI, bandaged A/P Right 1st and 2nd toe infection- stable - Podiatry on board and recommendations appreciated. Will need antibiotics and awaiting cultures for final decision on antibiotics. recommending patient go to SNF if needing IV antibiotics but patient would prefer to go home. - Xray negative for OM and recent MRI shows no signs of OM as well - ID on board and recommendations appreciated. changed to doxycycline oral per ID, treat for 10 more days - Wound care per podiatry FAM -nephrology consulted after fluids did not help -US and studies pending -carter to be inserted given patient's self-reported difficulty urinating hypertension - Continue patient's home medication Hyperlipidemia - continue on statin - LDL within normal limits Morbid obesity - A1c 5.9 Disposition - Continue monitoring on med/surg - Antibiotics per ID recommendations. -pending nephrology consult Problems: Exam/Review of Systems Vital Signs Vitals Vital Signs Date Time Temp Pulse Resp B/P Pulse Ox O2 Delivery O2 Flow Rate FiO2 07/13/17 14:35 98.3 88 20 99/50 92 Intake and Output 07/12/17 07/12/17 07/13/17 15:00 23:00 07:00 Intake Total 250 ml 1820 ml 1650 ml Balance 250 ml 1820 ml 1650 ml Results Result Diagram: 07/13/17 0503 07/13/17 0503 Results 24 hrs Laboratory Tests Test 07/13/17 05:03 07/13/17 07:54 White Blood Count 7.0 Red Blood Count 4.51 L Hemoglobin 13.8 L Hematocrit 41.1 L Mean Corpuscular Volume 91.1 Mean Corpuscular Hemoglobin 30.6 Mean Corpuscular Hemoglobin Concent 33.6 Red Cell Distribution Width 13.1 Platelet Count 148 Mean Platelet Volume 10.7 H Neutrophils % Segmented Neutrophils % (Manual) 61 Band Neutrophils % (Manual) 8 H Lymphocytes % Lymphocytes % (Manual) 3 L Reactive Lymphocytes % (Manual) 5 H Monocytes % Monocytes % (Manual) 15 H Eosinophils % Eosinophils % (Manual) 6 Basophils % Metamyelocytes % (manual) 1 H Myelocytes % (Manual) 1 H Nucleated Red Blood Cells % 0.0 Neutrophils # Neutrophils # (Manual) 4.3 Band Neutrophils # 0.5 Absolute Lymphocytes (Manual) 0.2 L Lymphocytes # Reactive Lymphocytes # 0.3 H Monocytes # Absolute Monocytes (Manual) 1.0 H Eosinophils # Basophils # Metamyelocytes # 0.0 Myelocytes # 0.0 Nucleated Red Blood Cells # Platelet Estimate NORMAL Polychromasia 1+ Anisocytosis 1+ Microcytosis 1+ Sodium Level 133 L Potassium Level 4.0 Chloride Level 96 L Carbon Dioxide Level 30 Anion Gap 11 Blood Urea Nitrogen 37 H Creatinine 1.81 H Glucose Level 101 Calcium Level 8.3 L Phosphorus Level 3.6 Magnesium Level 2.0 Albumin 3.3 Bedside Glucose 103 Medications Medications Current Medications Ondansetron HCl (Zofran Tab) 4 mg Q6H PRN PO NAUSEA AND/OR VOMITING; Start at 21:30 Acetaminophen (Tylenol Tab) 650 mg Q6H PRN PO PAIN LEVEL 1-3 OR FEVER Last administered on 07/11/17 08:43; Admin Dose 650 MG; Start 07/08/17 at 21:30 Acetaminophen/ Hydrocodone Bitart ([place] (5/325)) 1 tab Q6H PRN PO MODERATE PAIN LEVEL 4-6; Start 07/08/17 at 21:30 Acetaminophen/ Hydrocodone Bitart ([place] (5/325)) 2 tab Q6H PRN PO SEVERE PAIN LEVEL 7-10; Start 07/08/17 at 21:30 Docusate Sodium (Colace) 100 mg Q12H PRN PO CONSTIPATION Last administered on 07/10/17 19:32; Admin Dose 100 MG; Start 07/08/17 at 21:30 Bisacodyl (Dulcolax) 5 mg DAILY PRN PO CONSTIPATION Last administered on 06:14; Admin Dose 5 MG; Start 07/08/17 at 21:30 Atenolol (Tenormin) 100 mg QHS PO Last administered on 07/11/17 21:34; Admin Dose 100 MG; Start 07/09/17 at 21:00 Chlorthalidone (Hygroton) 25 mg QAM PO Last administered on 07/13/17 08:48; Admin Dose 25 MG; Start 07/09/17 at 09:00; Status Future Hold Lisinopril (Zestril) 40 mg BID PO Last administered on 07/13/17 08:48; Admin Dose 40 MG; Start 07/09/17 at 09:00; Status Future Hold Atorvastatin Calcium 10 mg 10 mg DAILY@21 PO Last administered on 07/12/17 21 :27; Admin Dose 10 MG; Start 07/09/17 at 21:00 Sodium Chloride (NS) 1,000 ml @ 100 mls/hr Q10H IV Last administered on 08:48; Admin Dose 100 MLS/HR; Start 07/12/17 at 11:30 Doxycycline Hyclate (Vibramycin) 100 mg BID PO ; Start 07/13/17 at 21:00 Amlodipine Besylate (Norvasc) 10 mg DAILY PO ; Start 07/14/17 at 09:00 EDDIE PHILLIPS Jul 13, 2017 16:32
[2017-07-13 19:49] VITALS: BP 107/52; RESP 17
[2017-07-13] MEDS: ATORVASTATIN 10 MG TAB PO SCH (20:46)
[2017-07-13] MEDS: DOXYCYCLINE 100 MG TAB PO SCH (20:46)
[2017-07-13] MEDS: ATENOLOL 100 MG TAB PO SCH (20:50)
[2017-07-14 04:36] VITALS: BP 112/65; RESP 18
[2017-07-14 06:10] LABS: ABNORMAL IP MESSAGE 1; BASOPHILS % 0.5 % (0.0-2.0); EOSINOPHILS # 0.5 10^3/ul (0.0-0.5); EOSINOPHILS % 7.5 % (0.0-7.0); HEMATOCRIT 39.2 % (42.0-52.0); HEMOGLOBIN 13.3 g/dl (14.0-18.0); LYMPHOCYTES # 0.5 10^3/ul (0.8-2.9); LYMPHOCYTES % 8.3 % (15.0-51.0); MEAN CORPUSCULAR HEMOGLOBIN 30.4 pg (29.0-33.0); MEAN CORPUSCULAR HGB CONC 33.9 g/dl (32.0-37.0); MEAN CORPUSCULAR VOLUME 89.5 fl (82.0-101.0); MEAN PLATELET VOLUME 10.1 fl (7.4-10.4); MONOCYTE # 1.3 10^3/ul (0.3-0.9); MONOCYTES % 21.2 % (0.0-11.0); NEUTROPHIL # 3.7 10^3/ul (1.6-7.5); NEUTROPHILS % 62.2 % (39.0-77.0); PLATELET COUNT 171 10^3/UL (140-415); POSITIVE DIFF @See below; RED BLOOD COUNT 4.38 10^6/ul (4.70-6.10); RED CELL DISTRIBUTION WIDTH 12.6 % (11.5-14.5)
[2017-07-14 06:38] LABS: CALCIUM 8.2 mg/dl (8.4-10.2); CREATININE 1.36 mg/dl (0.61-1.24); MAGNESIUM 1.9 mg/dl (1.7-2.5); PHOSPHORUS 3.1 mg/dl (2.5-4.9)
--- NOTE | 2017-07-14 07:25 | CONS ---
DATE OF ADMISSION: 07/08/2017 DATE OF CONSULTATION: NEPHROLOGY CONSULTATION REASON FOR CONSULTATION: Acute renal failure. HISTORY OF PRESENT ILLNESS: is a 62-year-old male with a past medical history of hyperten nani, depression, chronic skin changes of the right lower extremity who got admitted on 07/09/2017 s econdary to right toe infection. At that time the patient had ulcerative changes of the toes and un derlying infection. X-ray did not show any signs of osteomyelitis. On admission, the patient's cre atinine was 1.08, then 1.16, BUN was 30. The patient was also given a dose of Toradol 15 mg in the ER. Since then, the patient was started on vancomycin and also Zosyn 3.375 q. 6 for toe cellulitis infection. The patient was also continued on chlorthalidone 25 q.a.m. and also lisinopril 40 b.i.d. I's and O's since admission have not been strict. Patient's creatinine continued to rise, and it went up today to 1.81 and renal was consulted. Patient was started on MS 100 mL an hour yesterday. The patient was also started on Levaquin yesterday, which was stopped due to FAM. Currently, the p atient states that he has some dribbling of urine. Denies any chest pain, any shortness of breath, any abdominal pain, nausea, vomiting, diarrhea. PAST MEDICAL HISTORY: 1. Hypertension. 2. Hyperlipidemia. 3. Morbid obesity. 4. Chronic cellulitis of the bilateral lower extremities. SOCIAL HISTORY: Does not smoke, drink or take drugs. ALLERGIES: He is not allergic to any medications. MEDICATIONS: Per chart: 1. Amlodipine 10. 2. Doxycycline 100 b.i.d. 3. NS at 100. 4. Levaquin 500 which was stopped. 5. Vancomycin was stopped. 6. Atenolol 100. 7. Lipitor 10. 8. Chlorthalidone 20 p.o. q.a.m. 9. Lisinopril 40 b.i.d. 10. Vancomycin. 11. Zofran. 12. 13. [place]. 14. Colace. 15. Dulcolax. REVIEW OF SYSTEMS: Patient denied any chest pain, any shortness of breath, any abdominal pain, naus ea, vomiting, diarrhea. Denies any headache, any blurry vision. Denies any hematemesis, any melena , any bright red blood per rectum. Has chronic skin changes and chronic lower extremity edema. PHYSICAL EXAMINATION: VITAL SIGNS: Blood pressure 99/50, respiratory rate 20, pulse 88. Patient is afebrile. Since admi ssion, the patient had blood pressure ranging from 120s-130s and currently is in systolic of 90s. GENERAL: Patient is awake, alert, oriented, morbidly obese male, does not appear to be in any acute distress. HEENT: Pupils equal, round, reactive to light. NECK: Supple. JVD could not be appreciated. LUNGS: Clear to auscultate bilaterally. ABDOMEN: Distended, positive bowel sounds, obese. EXTREMITIES: 2-3+ edema, chronic stasis changes on bilateral lower extremities and right first toe cellulitis. DIAGNOSTIC DATA: Shows a sodium of 133, potassium 4.0, chloride 96, bicarb 30, BUN of 37, creatinin e 1.81. Since admission, was 1.16. Baseline in 2013 was 0.88, white count of 7.0, hemoglobin 13.8, platelet count is 148. Vancomycin level 11.2, INR 0.92. Foot x-ray showed no evidence of osteomye litis. Renal ultrasound showed 5.8 cm cyst in the lower pole left kidney with internal diabetes and possible septations. Recommend further evaluation of CT scan with IV contrast when possible. No e vidence of hydronephrosis, right kidney 13.9, and left kidney is 14.7. No evidence of obstructive u ropathy. ASSESSMENT: This is a 62-year-old male presenting with: 1. [id number] renal failure on admission. The baseline creatinine was already up, which was 1.08 from baseline of 0.88. This could be due to sepsis with medications. The patient was on chlor thalidone plus lisinopril. The patient denies any nonsteroidal anti-inflammatory drug use. Since , the patient received Toradol in the Emergency Room, then was started on vancomycin, Zosyn, Leva venus, plus the patient was continued on his chlorthalidone and lisinopril 40 b.i.d. The patient aguilar s not have any urinalysis or urine studies to assess. Renal ultrasound is negative for any hydro; h owever, the patient is dribbling. Renal failure is most likely secondary to acute tubular necrosis secondary to /medications. 2. Morbid obesity. 3. Cellulitis of the right first and great toe. 5. Hypertension; however, currently hypotensive. 6. A 5.8 cm cyst in the left lower pole of the left kidney. PLAN: At this period of time, the patient is admitted to med/surg. The patient is currently on MS at 100 mL an hour. We will check for UA, urine, lytes, protein to creatinine ratio. A bladder scan will be done. Please hold all of the nephrotoxic agents. Chlorthalidone has been stopped because of hyponatremia. The patient is on pretty big doses of lisinopril. The maximum dose is 40; however , the patient was on 40 b.i.d. The patient was also on vancomycin and Zosyn, which are nephrotoxic and have been discontinued. Avoid NSAIDs as the patient was given Toradol in the ER. We will follo w the patient closely with you. Patient should have strict I's and O's. The rest of the treatment will depend on the patient's hospitalization course. Dictated By: ROSE RIVAS/MIRTA Conf#: [id number] DID#: [id number]
[2017-07-14 08:20] VITALS: BP 125/54; RESP 19
[2017-07-14] MEDS: DOXYCYCLINE 100 MG TAB PO SCH ×2 (08:21→20:39)
[2017-07-14] MEDS ORDERED: AMLODIPINE 10 MG TAB PO SCH (09:00)
[2017-07-14 14:00] VITALS: BP 120/57; RESP 19
--- NOTE | 2017-07-14 14:38 | PN ---
Date/Time of Note Date/Time of Note DATE: 07/14/17 TIME: 14:36 Assessment/Plan VTE Prophylaxis VTE Prophylaxis Intervention: ambulation, SCD's Lines/Catheters IV Catheter Type (from Nrsg): Peripheral IV Assessment/Plan Chief Complaint/Hosp Course Subjective No acute complaints Objective Physical exam General: Patient is laying in bed and answers questions appropriately Mentation: Patient is alert and oriented 4, Head: Normocephalic atraumatic Eyes: EOMI, pupils reactive to light Neck: Supple, nontender, midline Respiratory: Clear to auscultation bilaterally Cardiovascular: regular rate, no obvious murmurs Gastrointestinal: non-tender to palpation, bowel sounds heard. Neurological: Moves all extremities spontaneously Skin: R foot CDI, bandaged A/P Right 1st and 2nd toe infection- stable - Podiatry on board and recommendations appreciated. Will need antibiotics and awaiting cultures for final decision on antibiotics. recommending patient go to SNF if needing IV antibiotics but patient would prefer to go home. - Xray negative for OM and recent MRI shows no signs of OM as well - ID on board and recommendations appreciated. changed to doxycycline oral per ID, treat for 10 more days - Wound care per podiatry FAM -nephrology consulted after fluids did not help -resolving, no carter placed due to patient's refusal hypertension - Continue patient's home medication Hyperlipidemia - continue on statin - LDL within normal limits Morbid obesity - A1c 5.9 Disposition - Continue monitoring on med/surg - Antibiotics per ID recommendations. -if patient's renal function resolves and HH placed for wound care, DC tomorrow on oral abx Problems: Exam/Review of Systems Vital Signs Vitals Vital Signs Date Time Temp Pulse Resp B/P Pulse Ox O2 Delivery O2 Flow Rate FiO2 07/14/17 08:20 97.5 89 19 125/54 93 Intake and Output 07/13/17 07/13/17 07/14/17 15:00 23:00 07:00 Intake Total 400 ml Output Total 100 ml Balance 300 ml Results Result Diagram: 07/14/17 0543 07/14/17 0543 Results 24 hrs Laboratory Tests Test 07/14/17 05:43 White Blood Count 6.0 Red Blood Count 4.38 L Hemoglobin 13.3 L Hematocrit 39.2 L Mean Corpuscular Volume 89.5 Mean Corpuscular Hemoglobin 30.4 Mean Corpuscular Hemoglobin Concent 33.9 Red Cell Distribution Width 12.6 Platelet Count 171 Mean Platelet Volume 10.1 Neutrophils % 62.2 Lymphocytes % 8.3 L Monocytes % 21.2 H Eosinophils % 7.5 H Basophils % 0.5 Nucleated Red Blood Cells % 0.0 Neutrophils # 3.7 Lymphocytes # 0.5 L Monocytes # 1.3 H Eosinophils # 0.5 Basophils # 0.0 Nucleated Red Blood Cells # 0.0 Sodium Level 135 Potassium Level 4.0 Chloride Level 97 Carbon Dioxide Level 29 Anion Gap 13 Blood Urea Nitrogen 33 H Creatinine 1.36 H Glucose Level 110 Calcium Level 8.2 L Phosphorus Level 3.1 Magnesium Level 1.9 Medications Medications Current Medications Ondansetron HCl (Zofran Tab) 4 mg Q6H PRN PO NAUSEA AND/OR VOMITING; Start at 21:30 Acetaminophen (Tylenol Tab) 650 mg Q6H PRN PO PAIN LEVEL 1-3 OR FEVER Last administered on 07/11/17 08:43; Admin Dose 650 MG; Start 07/08/17 at 21:30 Acetaminophen/ Hydrocodone Bitart ([place] (5/325)) 1 tab Q6H PRN PO MODERATE PAIN LEVEL 4-6; Start 07/08/17 at 21:30 Acetaminophen/ Hydrocodone Bitart ([place] (5/325)) 2 tab Q6H PRN PO SEVERE PAIN LEVEL 7-10; Start 07/08/17 at 21:30 Docusate Sodium (Colace) 100 mg Q12H PRN PO CONSTIPATION Last administered on 07/10/17 19:32; Admin Dose 100 MG; Start 07/08/17 at 21:30 Bisacodyl (Dulcolax) 5 mg DAILY PRN PO CONSTIPATION Last administered on 06:14; Admin Dose 5 MG; Start 07/08/17 at 21:30 Atenolol (Tenormin) 100 mg QHS PO Last administered on 07/11/17 21:34; Admin Dose 100 MG; Start 07/09/17 at 21:00 Chlorthalidone (Hygroton) 25 mg QAM PO Last administered on 07/13/17 08:48; Admin Dose 25 MG; Start 07/09/17 at 09:00; Status Future Hold Lisinopril (Zestril) 40 mg BID PO Last administered on 07/13/17 08:48; Admin Dose 40 MG; Start 07/09/17 at 09:00; Status Future Hold Atorvastatin Calcium (Lipitor) 10 mg DAILY@21 PO Last administered on 20:46; Admin Dose 10 MG; Start 07/09/17 at 21:00 Doxycycline Hyclate (Vibramycin) 100 mg BID PO Last administered on 07/14/17 08:21; Admin Dose 100 MG; Start 07/13/17 at 21:00 Tamsulosin HCl (Flomax) 0.4 mg HS PO ; Start 07/14/17 at 21:00 EDDIE PHILLIPS Jul 14, 2017 14:38
--- NOTE | 2017-07-14 15:27 | CONS ---
Date/Time of Note Date/Time of Note DATE: 07/14/17 TIME: 15:26 Assessment/Plan Assessment/Plan Chief Complaint/Hosp Course SUBJECTIVE: No acute changes. The patient is alert, feels good, no fevers. MICROBIOLOGY: Wound cultures growing staph species DIAGNOSTICS: X-ray of right foot revealed no evidence of osteomyelitis. ANTIMICROBIALS: Doxycycline PHYSICAL EXAMINATION: GENERAL: This is a morbidly obese elderly man who is awake, in no distress. HEENT: Head atraumatic, normocephalic. Sclerae anicteric. NECK: Supple. CHEST: Rise symmetrical. Breath sounds clear. HEART: S1, S2. ABDOMEN: Soft, bowel tones present. EXTREMITIES: With right lower extremity edema, erythema, second and first toe wounds and swelling. ASSESSMENT: 1. Right lower extremity cellulitis with second and first toe wounds. 2. Morbid obesity. 3. Hypertension. 4. Chronic venous stasis. PLAN: The patient remains stable. Continue antibiotics, lower extremity elevation, continue local wound care per podiatry Discussed with staff Problems: Consultation Date/Type/Reason Admit Date/Time Jul 08, 2017 at 20:30 Initial Consult Date 07/09/17 Type of Consultation: ID Exam/Review of Systems Vital Signs Vitals Vital Signs Date Time Temp Pulse Resp B/P Pulse Ox O2 Delivery O2 Flow Rate FiO2 07/14/17 08:20 97.5 89 19 125/54 93 Intake and Output 07/13/17 07/13/17 07/14/17 15:00 23:00 07:00 Intake Total 400 ml Output Total 100 ml Balance 300 ml Results Result Diagram: 07/14/17 0543 07/14/17 0543 Results 24 hrs Laboratory Tests Test 07/14/17 05:43 White Blood Count 6.0 Red Blood Count 4.38 L Hemoglobin 13.3 L Hematocrit 39.2 L Mean Corpuscular Volume 89.5 Mean Corpuscular Hemoglobin 30.4 Mean Corpuscular Hemoglobin Concent 33.9 Red Cell Distribution Width 12.6 Platelet Count 171 Mean Platelet Volume 10.1 Neutrophils % 62.2 Lymphocytes % 8.3 L Monocytes % 21.2 H Eosinophils % 7.5 H Basophils % 0.5 Nucleated Red Blood Cells % 0.0 Neutrophils # 3.7 Lymphocytes # 0.5 L Monocytes # 1.3 H Eosinophils # 0.5 Basophils # 0.0 Nucleated Red Blood Cells # 0.0 Sodium Level 135 Potassium Level 4.0 Chloride Level 97 Carbon Dioxide Level 29 Anion Gap 13 Blood Urea Nitrogen 33 H Creatinine 1.36 H Glucose Level 110 Calcium Level 8.2 L Phosphorus Level 3.1 Magnesium Level 1.9 Medications Medications Current Medications Ondansetron HCl (Zofran Tab) 4 mg Q6H PRN PO NAUSEA AND/OR VOMITING; Start at 21:30 Acetaminophen (Tylenol Tab) 650 mg Q6H PRN PO PAIN LEVEL 1-3 OR FEVER Last administered on 07/11/17 08:43; Admin Dose 650 MG; Start 07/08/17 at 21:30 Acetaminophen/ Hydrocodone Bitart ([place] (5/325)) 1 tab Q6H PRN PO MODERATE PAIN LEVEL 4-6; Start 07/08/17 at 21:30 Acetaminophen/ Hydrocodone Bitart ([place] (5/325)) 2 tab Q6H PRN PO SEVERE PAIN LEVEL 7-10; Start 07/08/17 at 21:30 Docusate Sodium (Colace) 100 mg Q12H PRN PO CONSTIPATION Last administered on 07/10/17 19:32; Admin Dose 100 MG; Start 07/08/17 at 21:30 Bisacodyl (Dulcolax) 5 mg DAILY PRN PO CONSTIPATION Last administered on 06:14; Admin Dose 5 MG; Start 07/08/17 at 21:30 Atenolol (Tenormin) 100 mg QHS PO Last administered on 07/11/17 21:34; Admin Dose 100 MG; Start 07/09/17 at 21:00 Chlorthalidone (Hygroton) 25 mg QAM PO Last administered on 07/13/17 08:48; Admin Dose 25 MG; Start 07/09/17 at 09:00; Status Future Hold Lisinopril (Zestril) 40 mg BID PO Last administered on 07/13/17 08:48; Admin Dose 40 MG; Start 07/09/17 at 09:00; Status Future Hold Atorvastatin Calcium (Lipitor) 10 mg DAILY@21 PO Last administered on 20:46; Admin Dose 10 MG; Start 07/09/17 at 21:00 Doxycycline Hyclate (Vibramycin) 100 mg BID PO Last administered on 07/14/17 08:21; Admin Dose 100 MG; Start 07/13/17 at 21:00 Tamsulosin HCl (Flomax) 0.4 mg HS PO ; Start 07/14/17 at 21:00 VANI BORREGO NP Jul 14, 2017 15:27
--- NOTE | 2017-07-14 16:09 | CONS ---
Date/Time of Note Date/Time of Note DATE: 07/14/17 TIME: 16:02 Assessment/Plan Assessment/Plan Chief Complaint/Hosp Course 1. [id number] renal failure on admission. The baseline creatinine was already up, which was 1.08 from baseline of 0.88. This could be due to sepsis with medications. The patient was on chlorthalidone plus lisinopril. The patient denies any nonsteroidal anti-inflammatory drug use. Since then, the patient received Toradol in the Emergency Room, then was started on vancomycin, Zosyn, Levaquin, plus the patient was continued on his chlorthalidone and lisinopril 40 b.i.d. The patient does not have any urinalysis or urine studies to assess. Renal ultrasound is negative for any hydro; however, the patient is dribbling. Renal failure is most likely secondary to acute tubular necrosis secondary to meds vs obstruction. Cr improved since yesterday 2. Morbid obesity. 3. Cellulitis of the right first and great toe. 5. Hypertension; 6. A 5.8 cm cyst in the left lower pole of the left kidney. 7 Hyponatremia likely due to chlorthalidone Recs - Obtain bladder scan and do staright i and O and compare( bladder scan may be inacurrate due to central adiposity) - Check UA , Urine lytes and Pr/Cr ratio not done - Hold chlorthalidone and lisnopril 40 bid( max dose is 40 ) - Please hold all of the nephrotoxic agents - on doxycycline per ID - Renal cyst can be4 evaluated witH CT with contrast once renal function is improved Problems: Consultation Date/Type/Reason Admit Date/Time Jul 08, 2017 at 20:30 Initial Consult Date 07/09/17 Type of Consultation: Renal 24 HR Interval Summary Free Text/Dictation Dribbling Started on Flomax Bladder scan + 130 ml Exam/Review of Systems Vital Signs Vitals Vital Signs Date Time Temp Pulse Resp B/P Pulse Ox O2 Delivery O2 Flow Rate FiO2 07/14/17 08:20 97.5 89 19 125/54 93 Intake and Output 07/13/17 07/13/17 07/14/17 15:00 23:00 07:00 Intake Total 400 ml Output Total 100 ml Balance 300 ml Exam GENERAL: Patient is awake, alert, oriented, morbidly obese male, does not appear to be in any acute distress. HEENT: Pupils equal, round, reactive to light. NECK: Supple. JVD could not be appreciated. LUNGS: Clear to auscultate bilaterally. ABDOMEN: Distended, positive bowel sounds, obese. EXTREMITIES: 2-3+ edema, chronic stasis changes on bilateral lower extremities and right first toe cellulitis. Results Result Diagram: 07/14/17 0543 07/14/17 0543 Results 24 hrs Laboratory Tests Test 07/14/17 05:43 White Blood Count 6.0 Red Blood Count 4.38 L Hemoglobin 13.3 L Hematocrit 39.2 L Mean Corpuscular Volume 89.5 Mean Corpuscular Hemoglobin 30.4 Mean Corpuscular Hemoglobin Concent 33.9 Red Cell Distribution Width 12.6 Platelet Count 171 Mean Platelet Volume 10.1 Neutrophils % 62.2 Lymphocytes % 8.3 L Monocytes % 21.2 H Eosinophils % 7.5 H Basophils % 0.5 Nucleated Red Blood Cells % 0.0 Neutrophils # 3.7 Lymphocytes # 0.5 L Monocytes # 1.3 H Eosinophils # 0.5 Basophils # 0.0 Nucleated Red Blood Cells # 0.0 Sodium Level 135 Potassium Level 4.0 Chloride Level 97 Carbon Dioxide Level 29 Anion Gap 13 Blood Urea Nitrogen 33 H Creatinine 1.36 H Glucose Level 110 Calcium Level 8.2 L Phosphorus Level 3.1 Magnesium Level 1.9 Medications Medications Current Medications Ondansetron HCl (Zofran Tab) 4 mg Q6H PRN PO NAUSEA AND/OR VOMITING; Start at 21:30 Acetaminophen (Tylenol Tab) 650 mg Q6H PRN PO PAIN LEVEL 1-3 OR FEVER Last administered on 07/11/17 08:43; Admin Dose 650 MG; Start 07/08/17 at 21:30 Acetaminophen/ Hydrocodone Bitart ([place] (5/325)) 1 tab Q6H PRN PO MODERATE PAIN LEVEL 4-6; Start 07/08/17 at 21:30 Acetaminophen/ Hydrocodone Bitart ([place] (5/325)) 2 tab Q6H PRN PO SEVERE PAIN LEVEL 7-10; Start 07/08/17 at 21:30 Docusate Sodium (Colace) 100 mg Q12H PRN PO CONSTIPATION Last administered on 07/10/17 19:32; Admin Dose 100 MG; Start 07/08/17 at 21:30 Bisacodyl (Dulcolax) 5 mg DAILY PRN PO CONSTIPATION Last administered on 06:14; Admin Dose 5 MG; Start 07/08/17 at 21:30 Atenolol (Tenormin) 100 mg QHS PO Last administered on 07/11/17 21:34; Admin Dose 100 MG; Start 07/09/17 at 21:00 Chlorthalidone (Hygroton) 25 mg QAM PO Last administered on 07/13/17 08:48; Admin Dose 25 MG; Start 07/09/17 at 09:00; Status Future Hold Lisinopril (Zestril) 40 mg BID PO Last administered on 07/13/17 08:48; Admin Dose 40 MG; Start 07/09/17 at 09:00; Status Future Hold Atorvastatin Calcium (Lipitor) 10 mg DAILY@21 PO Last administered on 20:46; Admin Dose 10 MG; Start 07/09/17 at 21:00 Doxycycline Hyclate (Vibramycin) 100 mg BID PO Last administered on 07/14/17 08:21; Admin Dose 100 MG; Start 07/13/17 at 21:00 Tamsulosin HCl (Flomax) 0.4 mg HS PO ; Start 07/14/17 at 21:00 ROSE FRANKS MD Jul 14, 2017 16:09
[2017-07-14] MEDS: ATORVASTATIN 10 MG TAB PO SCH (20:39)
[2017-07-14] MEDS: ATENOLOL 100 MG TAB PO SCH (20:41)
[2017-07-14 20:46] VITALS: BP 125/61; RESP 18
[2017-07-14] MEDS ORDERED: TAMSULOSIN (SR) 0.4 MG CAP PO SCH (21:00)
[2017-07-14 23:46] LABS: ADD UMIC YES; UR ASCORBIC ACID NEGATIVE (NEGATIVE); UR BILIRUBIN (Dip) NEGATIVE (NEGATIVE); UR BLOOD (Dip) 3+ mg/dL (NEGATIVE); UR CLARITY CLEAR (CLEAR); UR COLOR YELLOW (YELLOW); UR GLUCOSE (Dip) NEGATIVE (NEGATIVE); UR KETONES (Dip) NEGATIVE (NEGATIVE); UR LEUKOCYTE ESTERASE (Dip) NEGATIVE Leu/ul (NEGATIVE); UR NITRITE (Dip) NEGATIVE (NEGATIVE); UR RBC 18 /HPF (0-5); UR SPECIFIC GRAVITY (Dip) 1.012 (1.003-1.030); UR TOTAL PROTEIN (Dip) NEGATIVE (NEGATIVE); UR UROBILINOGEN (Dip) NEGATIVE (NEGATIVE)
[2017-07-15 00:06] LABS: PROTEIN/CREAT RATIO 0.31 RATIO
[2017-07-15 02:36] VITALS: BP 101/56; RESP 21
[2017-07-15 05:59] LABS: BASOPHIL # 0.1 10^3/ul (0.0-0.1); BASOPHILS % 0.9 % (0.0-2.0); EOSINOPHILS # 0.6 10^3/ul (0.0-0.5); EOSINOPHILS % 8.9 % (0.0-7.0); HEMATOCRIT 41.6 % (42.0-52.0); HEMOGLOBIN 13.8 g/dl (14.0-18.0); LYMPHOCYTES # 0.8 10^3/ul (0.8-2.9); LYMPHOCYTES % 11.2 % (15.0-51.0); MEAN CORPUSCULAR HEMOGLOBIN 30.2 pg (29.0-33.0); MEAN CORPUSCULAR HGB CONC 33.2 g/dl (32.0-37.0); MEAN PLATELET VOLUME 10.3 fl (7.4-10.4); MONOCYTE # 1.4 10^3/ul (0.3-0.9); MONOCYTES % 19.7 % (0.0-11.0); NEUTROPHIL # 4.1 10^3/ul (1.6-7.5); NEUTROPHILS % 58.9 % (39.0-77.0); PLATELET COUNT 187 10^3/UL (140-415); RED BLOOD COUNT 4.57 10^6/ul (4.70-6.10); RED CELL DISTRIBUTION WIDTH 12.6 % (11.5-14.5); WHITE BLOOD COUNT 6.9 10^3/ul (4.8-10.8)
[2017-07-15 06:38] LABS: CALCIUM 8.8 mg/dl (8.4-10.2); CREATININE 1.22 mg/dl (0.61-1.24); PHOSPHORUS 4.1 mg/dl (2.5-4.9); POTASSIUM 4.2 mmol/L (3.5-5.1)
[2017-07-15 08:00] VITALS: BP 112/53; RESP 18
[2017-07-15] MEDS: DOXYCYCLINE 100 MG TAB PO SCH (09:47)
--- NOTE | 2017-07-15 12:07 | PDOCDIS ---
Discharge Instructions CONDITION Patient Condition: Stable HOME CARE INSTRUCTIONS: Special Diet: Low chol low fat FOLLOW UP/APPOINTMENTS Follow-up Plan 1. Continue antibiotic, Doxycycline, for 9 more days 2. Stop lisinopril and chlorthalidone as it is causing renal dysfunction 3. Continue atenolol, Blood pressure at goal 4. Continue new Rx, flomax for BPH symptoms 5. Follow up with your primary care provider as soon as possible for repeat labs 6. Home health is to be arranged for wound care of R LE wound. EDDIE PHILLIPS Jul 15, 2017 12:07
[2017-07-15] MEDS ORDERED: TAMS-14 PO (12:12)
[2017-07-15] MEDS ORDERED: SIMV20TA PO (12:12)
[2017-07-15] MEDS ORDERED: ATEN100T PO (12:12)
[2017-07-15] MEDS ORDERED: ASPI-664 PO (12:12)
[2017-07-15] MEDS ORDERED: DOXY100T2 PO (12:12)
[2017-07-15] MEDS ORDERED: HYDR-3498 PO (12:12)
[2017-07-15 14:00] VITALS: BP 126/60; RESP 19
--- NOTE | 2017-07-15 14:01 | CONS ---
Date/Time of Note Date/Time of Note DATE: 07/15/17 TIME: 14:01 Assessment/Plan Assessment/Plan Chief Complaint/Hosp Course SUBJECTIVE: No acute changes. The patient is alert, feels good, no fevers. MICROBIOLOGY: Wound cultures growing staph species DIAGNOSTICS: X-ray of right foot revealed no evidence of osteomyelitis. ANTIMICROBIALS: Doxycycline PHYSICAL EXAMINATION: GENERAL: This is a morbidly obese elderly man who is awake, in no distress. HEENT: Head atraumatic, normocephalic. Sclerae anicteric. NECK: Supple. CHEST: Rise symmetrical. Breath sounds clear. HEART: S1, S2. ABDOMEN: Soft, bowel tones present. EXTREMITIES: With right lower extremity edema, erythema, second and first toe wounds and swelling. ASSESSMENT: 1. Right lower extremity cellulitis with second and first toe wounds. 2. Morbid obesity. 3. Hypertension. 4. Chronic venous stasis. PLAN: The patient remains stable. Continue antibiotics, f/u podiatry rec-s Discussed with staff Problems: Consultation Date/Type/Reason Admit Date/Time Jul 08, 2017 at 20:30 Initial Consult Date 07/09/17 Type of Consultation: id Exam/Review of Systems Vital Signs Vitals Vital Signs Date Time Temp Pulse Resp B/P Pulse Ox O2 Delivery O2 Flow Rate FiO2 07/15/17 08:00 98.8 63 18 112/53 97 Intake and Output 07/14/17 07/14/17 07/15/17 15:00 23:00 07:00 Intake Total 1620 ml 360 ml Output Total 400 ml Balance 1620 ml -40 ml Results Result Diagram: 07/15/17 0518 07/15/17 0518 Results 24 hrs Laboratory Tests Test 07/14/17 22:27 07/15/17 05:18 Urine Color YELLOW Urine Clarity CLEAR Urine pH 5.0 Urine Specific [place] 1.012 Urine Ketones NEGATIVE Urine Nitrite NEGATIVE Urine Bilirubin NEGATIVE Urine Urobilinogen NEGATIVE Urine Leukocyte Esterase NEGATIVE Urine Microscopic RBC 18 H Urine Microscopic WBC 1 Urine Eosinophils % 0.0 Urine Hemoglobin 3+ H Urine Random Creatinine 66.85 Urine Random Sodium 102 H Urine Protein/Creatinine Ratio 0.31 Urine Glucose NEGATIVE Urine Total Protein 21.0 H White Blood Count 6.9 Red Blood Count 4.57 L Hemoglobin 13.8 L Hematocrit 41.6 L Mean Corpuscular Volume 91.0 Mean Corpuscular Hemoglobin 30.2 Mean Corpuscular Hemoglobin Concent 33.2 Red Cell Distribution Width 12.6 Platelet Count 187 Mean Platelet Volume 10.3 Neutrophils % 58.9 Lymphocytes % 11.2 L Monocytes % 19.7 H Eosinophils % 8.9 H Basophils % 0.9 Nucleated Red Blood Cells % 0.0 Neutrophils # 4.1 Lymphocytes # 0.8 Monocytes # 1.4 H Eosinophils # 0.6 H Basophils # 0.1 Nucleated Red Blood Cells # 0.0 Sodium Level 137 Potassium Level 4.2 Chloride Level 95 L Carbon Dioxide Level 34 H Anion Gap 12 Blood Urea Nitrogen 28 H Creatinine 1.22 Glucose Level 105 Calcium Level 8.8 Phosphorus Level 4.1 Magnesium Level 2.0 Medications Medications Current Medications Ondansetron HCl (Zofran Tab) 4 mg Q6H PRN PO NAUSEA AND/OR VOMITING; Start at 21:30 Acetaminophen (Tylenol Tab) 650 mg Q6H PRN PO PAIN LEVEL 1-3 OR FEVER Last administered on 07/11/17 08:43; Admin Dose 650 MG; Start 07/08/17 at 21:30 Acetaminophen/ Hydrocodone Bitart ([place] (5/325)) 1 tab Q6H PRN PO MODERATE PAIN LEVEL 4-6; Start 07/08/17 at 21:30 Acetaminophen/ Hydrocodone Bitart ([place] (5/325)) 2 tab Q6H PRN PO SEVERE PAIN LEVEL 7-10; Start 07/08/17 at 21:30 Docusate Sodium (Colace) 100 mg Q12H PRN PO CONSTIPATION Last administered on 07/10/17 19:32; Admin Dose 100 MG; Start 07/08/17 at 21:30 Bisacodyl (Dulcolax) 5 mg DAILY PRN PO CONSTIPATION Last administered on 06:14; Admin Dose 5 MG; Start 07/08/17 at 21:30 Atenolol (Tenormin) 100 mg QHS PO Last administered on 07/14/17 20:41; Admin Dose 100 MG; Start 07/09/17 at 21:00 Chlorthalidone (Hygroton) 25 mg QAM PO Last administered on 07/13/17 08:48; Admin Dose 25 MG; Start 07/09/17 at 09:00; Status Future Hold Lisinopril (Zestril) 40 mg BID PO Last administered on 07/13/17 08:48; Admin Dose 40 MG; Start 07/09/17 at 09:00; Status Future Hold Atorvastatin Calcium (Lipitor) 10 mg DAILY@21 PO Last administered on 20:39; Admin Dose 10 MG; Start 07/09/17 at 21:00 Doxycycline Hyclate (Vibramycin) 100 mg BID PO Last administered on 07/15/17 09:47; Admin Dose 100 MG; Start 07/13/17 at 21:00 Tamsulosin HCl (Flomax) 0.4 mg HS PO Last administered on 07/14/17 20:39; Admin Dose 0.4 MG; Start 07/14/17 at 21:00 VANI BORREGO NP Jul 15, 2017 14:01
--- NOTE | 2017-07-15 14:54 | CONS ---
Date/Time of Note Date/Time of Note DATE: 07/15/17 TIME: 14:54 Assessment/Plan Assessment/Plan Chief Complaint/Hosp Course 1. [id number] renal failure on admission. The baseline creatinine was already up, which was 1.08 from baseline of 0.88. This could be due to sepsis with medications. The patient was on chlorthalidone plus lisinopril. The patient denies any nonsteroidal anti-inflammatory drug use. Since then, the patient received Toradol in the Emergency Room, then was started on vancomycin, Zosyn, Levaquin, plus the patient was continued on his chlorthalidone and lisinopril 40 b.i.d. The patient does not have any urinalysis or urine studies to assess. Renal ultrasound is negative for any hydro; however, the patient is dribbling. Renal failure is most likely secondary to acute tubular necrosis secondary to meds vs obstruction. Cr improved since yesterday 2. Morbid obesity. 3. Cellulitis of the right first and great toe. 5. Hypertension; 6. A 5.8 cm cyst in the left lower pole of the left kidney. 7 Hyponatremia likely due to chlorthalidone Recs - Obtain bladder scan and do staright i and O and compare( bladder scan may be inacurrate due to central adiposity) - Check UA , Urine lytes and Pr/Cr ratio not done - Hold chlorthalidone and lisnopril 40 bid( max dose is 40 ) - Please hold all of the nephrotoxic agents - on doxycycline per ID - Renal cyst can be4 evaluated witH CT with contrast once renal function is improved Problems: Consultation Date/Type/Reason Admit Date/Time Jul 08, 2017 at 20:30 Initial Consult Date 07/09/17 Type of Consultation: id Exam/Review of Systems Vital Signs Vitals Vital Signs Date Time Temp Pulse Resp B/P Pulse Ox O2 Delivery O2 Flow Rate FiO2 07/15/17 08:00 98.8 63 18 112/53 97 Intake and Output 07/14/17 07/14/17 07/15/17 14:59 22:59 06:59 Intake Total 1620 ml 360 ml Output Total 400 ml Balance 1620 ml -40 ml Results Result Diagram: 07/15/17 0518 07/15/17 0518 Results 24 hrs Laboratory Tests Test 07/14/17 22:27 07/15/17 05:18 Urine Color YELLOW Urine Clarity CLEAR Urine pH 5.0 Urine Specific [place] 1.012 Urine Ketones NEGATIVE Urine Nitrite NEGATIVE Urine Bilirubin NEGATIVE Urine Urobilinogen NEGATIVE Urine Leukocyte Esterase NEGATIVE Urine Microscopic RBC 18 H Urine Microscopic WBC 1 Urine Eosinophils % 0.0 Urine Hemoglobin 3+ H Urine Random Creatinine 66.85 Urine Random Sodium 102 H Urine Protein/Creatinine Ratio 0.31 Urine Glucose NEGATIVE Urine Total Protein 21.0 H White Blood Count 6.9 Red Blood Count 4.57 L Hemoglobin 13.8 L Hematocrit 41.6 L Mean Corpuscular Volume 91.0 Mean Corpuscular Hemoglobin 30.2 Mean Corpuscular Hemoglobin Concent 33.2 Red Cell Distribution Width 12.6 Platelet Count 187 Mean Platelet Volume 10.3 Neutrophils % 58.9 Lymphocytes % 11.2 L Monocytes % 19.7 H Eosinophils % 8.9 H Basophils % 0.9 Nucleated Red Blood Cells % 0.0 Neutrophils # 4.1 Lymphocytes # 0.8 Monocytes # 1.4 H Eosinophils # 0.6 H Basophils # 0.1 Nucleated Red Blood Cells # 0.0 Sodium Level 137 Potassium Level 4.2 Chloride Level 95 L Carbon Dioxide Level 34 H Anion Gap 12 Blood Urea Nitrogen 28 H Creatinine 1.22 Glucose Level 105 Calcium Level 8.8 Phosphorus Level 4.1 Magnesium Level 2.0 Medications Medications Current Medications Ondansetron HCl (Zofran Tab) 4 mg Q6H PRN PO NAUSEA AND/OR VOMITING; Start at 21:30 Acetaminophen (Tylenol Tab) 650 mg Q6H PRN PO PAIN LEVEL 1-3 OR FEVER Last administered on 07/11/17 08:43; Admin Dose 650 MG; Start 07/08/17 at 21:30 Acetaminophen/ Hydrocodone Bitart ([place] (5/325)) 1 tab Q6H PRN PO MODERATE PAIN LEVEL 4-6; Start 07/08/17 at 21:30 Acetaminophen/ Hydrocodone Bitart ([place] (5/325)) 2 tab Q6H PRN PO SEVERE PAIN LEVEL 7-10; Start 07/08/17 at 21:30 Docusate Sodium (Colace) 100 mg Q12H PRN PO CONSTIPATION Last administered on 07/10/17 19:32; Admin Dose 100 MG; Start 07/08/17 at 21:30 Bisacodyl (Dulcolax) 5 mg DAILY PRN PO CONSTIPATION Last administered on 06:14; Admin Dose 5 MG; Start 07/08/17 at 21:30 Atenolol (Tenormin) 100 mg QHS PO Last administered on 07/14/17 20:41; Admin Dose 100 MG; Start 07/09/17 at 21:00 Chlorthalidone (Hygroton) 25 mg QAM PO Last administered on 07/13/17 08:48; Admin Dose 25 MG; Start 07/09/17 at 09:00; Status Future Hold Lisinopril (Zestril) 40 mg BID PO Last administered on 07/13/17 08:48; Admin Dose 40 MG; Start 07/09/17 at 09:00; Status Future Hold Atorvastatin Calcium (Lipitor) 10 mg DAILY@21 PO Last administered on 20:39; Admin Dose 10 MG; Start 07/09/17 at 21:00 Doxycycline Hyclate (Vibramycin) 100 mg BID PO Last administered on 07/15/17 09:47; Admin Dose 100 MG; Start 07/13/17 at 21:00 Tamsulosin HCl (Flomax) 0.4 mg HS PO Last administered on 07/14/17 20:39; Admin Dose 0.4 MG; Start 07/14/17 at 21:00 ROSE FRANKS MD Jul 15, 2017 14:54
--- NOTE | 2017-07-15 15:05 | DS ---
Date/Time of Note Date/Time of Note DATE: 07/15/17 TIME: 15:05 Discharge Summary Admission/Discharge Info Admit Date/Time Jul 08, 2017 at 20:30 Discharge Date/Time Patient Condition: Stable Hospital Course Patient is a gentleman who initially came in to [facility] for right lower extremity infection was found to have right lower extremity cellulitis and wound infection. Patient underwent x-ray and MRI which did not show signs of osteomyelitis and podiatry also followed up with patient. Infectious disease was also involved and it was determined the patient will be discharged on appropriate antibiotics for an additional 9 days after hospital addition. Patient refused [facility] facility and IV antibiotics as patient wanted to go home and home health wound care was arranged. Patient also had mild acute kidney injury during the stay however did spontaneously resolve, likely secondary to nephrotoxic antibiotics. Patient's antihypertensives were also adjusted as they were playing a part on his acute kidney injury and patient will be discharged with appropriate medications as well as Flomax for possible BPH symptoms. Patient given explicit instructions to follow with his PCP as soon as possible and follow-up with imaging ordered by PCP for renal cyst. Patient understands and will follow with primary care provider as soon as possible. Home Meds Active Scripts Hydrocodone Bit-Acetaminophen (Hydrocodone Bit-APAP) 5-325MG Tablet, 1 TAB PO Q8 Y for PAIN for 14 Days, #42 TAB Prov:EDDIE PHILLIPS 07/15/17 Tamsulosin Hcl* (Flomax*) 0.4 Mg Cap.er.24h, 0.4 MG PO HS for 30 Days, #30 CAP Prov:EDDIE PHILLIPS 07/15/17 Doxycycline* (Vibramycin*) 100 Mg Tab, 100 MG PO BID for 9 Days, #18 TAB Prov:EDDIE PHILLIPS 07/15/17 Aspirin (Aspirin Low Dose) 81 Mg Tablet.dr, 81 MG PO DAILY for 30 Days, #30 TAB Prov:EDDIE PHILLIPS 07/15/17 Simvastatin* (Zocor*) 20 Mg Tablet, 20 MG PO QHS for 30 Days, #30 TAB Prov:EDDIE PHILLIPS 07/15/17 Atenolol* (Atenolol*) 100 Mg Tablet, 100 MG PO QHS for 30 Days, #30 TAB Prov:EDDIE PHILLIPS 07/15/17 Discontinued Reported Medications Lisinopril* (Lisinopril*) 40 Mg Tablet, 40 MG PO BID, #30 TAB 07/08/17 Chlorthalidone* (Chlorthalidone*) 25 Mg Tablet, 25 MG PO QAM, TAB 01/08/14 Lisinopril* (Lisinopril*) 20 Mg Tablet, 20 MG PO DAILY, TAB 01/08/14 Follow-up Plan 1. Continue antibiotic, Doxycycline, for 9 more days 2. Stop lisinopril and chlorthalidone as it is causing renal dysfunction 3. Continue atenolol, Blood pressure at goal 4. Continue new Rx, flomax for BPH symptoms 5. Follow up with your primary care provider as soon as possible for repeat labs 6. Home health is to be arranged for wound care of R LE wound. Primary Care Provider Wayne Ayala Time spent on discharge: > 30 minutes Pending Labs Laboratory Tests Test 07/14/17 22:27 07/15/17 05:18 Urine Color YELLOW (YELLOW) Urine Clarity CLEAR (CLEAR) Urine pH 5.0 (5.0-9.0) Urine Specific [place] 1.012 (1.003-1.030) Urine Ketones NEGATIVEmg/dL (NEGATIVE) Urine Nitrite NEGATIVEmg/dL (NEGATIVE) Urine Bilirubin NEGATIVEmg/dL (NEGATIVE) Urine Urobilinogen NEGATIVEmg/dL (NEGATIVE) Urine Leukocyte Esterase NEGATIVELeu/ul (NEGATIVE) Urine Microscopic RBC 18/HPF (0-5) Urine Microscopic WBC 1/HPF (0-5) Urine Eosinophils % 0.0% (0-1.9) Urine Hemoglobin 3+mg/dL (NEGATIVE) Urine Random Creatinine 66.85mg/dl (20-370) Urine Random Sodium 102mmol/L (30-90) Urine Protein/Creatinine Ratio 0.31RATIO Urine Glucose NEGATIVEmg/dL (NEGATIVE) Urine Total Protein 21.0mg/dl (0.0-11.9) White Blood Count 6.910^3/ul (4.8-10.8) Red Blood Count 4.5710^6/ul (4.70-6.10) Hemoglobin 13.8g/dl (14.0-18.0) Hematocrit 41.6% (42.0-52.0) Mean Corpuscular Volume 91.0fl (82.0-101.0) Mean Corpuscular Hemoglobin 30.2pg (29.0-33.0) Mean Corpuscular Hemoglobin Concent 33.2g/dl (32.0-37.0) Red Cell Distribution Width 12.6% (11.5-14.5) Platelet Count 86424^3/UL (140-415) Mean Platelet Volume 10.3fl (7.4-10.4) Neutrophils % 58.9% (39.0-77.0) Lymphocytes % 11.2% (15.0-51.0) Monocytes % 19.7% (0.0-11.0) Eosinophils % 8.9% (0.0-7.0) Basophils % 0.9% (0.0-2.0) Nucleated Red Blood Cells % 0.0/100WBC (0.0-0.0) Neutrophils # 4.110^3/ul (1.6-7.5) Lymphocytes # 0.810^3/ul (0.8-2.9) Monocytes # 1.410^3/ul (0.3-0.9) Eosinophils # 0.610^3/ul (0.0-0.5) Basophils # 0.110^3/ul (0.0-0.1) Nucleated Red Blood Cells # 0.010^3/ul (0.0-0.0) Sodium Level 137mmol/L (135-144) Potassium Level 4.2mmol/L (3.5-5.1) Chloride Level 95mmol/L (97-110) Carbon Dioxide Level 34mmol/L (21-31) Anion Gap 12 (8-16) Blood Urea Nitrogen 28mg/dl (7-20) Creatinine 1.22mg/dl (0.61-1.24) Glucose Level 105mg/dl (70-220) Calcium Level 8.8mg/dl (8.4-10.2) Phosphorus Level 4.1mg/dl (2.5-4.9) Magnesium Level 2.0mg/dl (1.7-2.5) EDDIE PHILLIPS Jul 15, 2017 15:05
== END 2017-07-15 17:04 | disposition home or self-care (01) | DRG 603 ==
LOC: E/R 17:11 → PP2 20:30
PROVIDERS: ADMIT Family Medicine; ATTEND Family Medicine
DX: L03.031 Cellulitis of right toe (principal); N17.9 Acute kidney failure, unspecified; R65.10 Systemic inflammatory response syndrome (SIRS) of non-infectious origin without acute organ dysfunction; I95.9 Hypotension, unspecified; E87.1 Hypo-osmolality and hyponatremia; Z68.42 Body mass index [BMI] 45.0-49.9, adult; E66.01 Morbid (severe) obesity due to excess calories; I87.8 Other specified disorders of veins; L89.90 Pressure ulcer of unspecified site, unspecified stage; Z71.3 Dietary counseling and surveillance; E78.5 Hyperlipidemia, unspecified; R60.0 Localized edema; I12.9 Hypertensive chronic kidney disease with stage 1 through stage 4 chronic kidney disease, or unspecified chronic kidney disease; N18.9 Chronic kidney disease, unspecified; N28.1 Cyst of kidney, acquired; N14.1 Nephropathy induced by other drugs, medicaments and biological substances; Z79.2 Long term (current) use of antibiotics
CPT/HCPCS: 36415; 73630; 76775; 80048; 80053; 80061; 80069; 80202; 81001; 81003; 82570; 82962; 83036; 83690; 83735; 84100; 84300; 84443; 85025; 85610; 87070; 89190; 96365; 96366; 96375; J1885; J2543; J3370; J7030; J7040; J7050

== ENCOUNTER 2018-10-10 17:20 | Emergency (ER) | payer MEDICARE, OTHER ==
[~2018-10-10] VITALS: Ht 185.4 cm; Wt 111.0 kg
[~2018-10-10 17:20] MED LIST changes: +ASPI-818 PO; -CHLO25TA13 PO; +DOXY100T2 PO; +HYDR-3601 PO; -LISI20TA11 PO; +SIMV20TA PO; +TAMS-14 PO
[2018-10-10 17:32] VITALS: Ht 185.4 cm; Wt 111.0 kg
[2018-10-10] MEDS ORDERED: LACR35O LEFT EYE (17:39)
[2018-10-10] MEDS ORDERED: PRED20TA PO (17:39)
--- NOTE | 2018-10-10 17:51 | ERD ---
ER Documentation Chief Complaint Chief Complaint LEFT FACIAL NUMBNESS SINCE WEDNESDAY UNABLE TO RAISE EYEBROW AOX4 HPI Patient is a 63-year-old male with hypertension who presents with facial droop. The patient was brought in by ambulance. The patient's facial droop started on Wednesday. The droop has been constant. Home health nurse came and told him he should go to the emergency department because he might be having a stroke. The patient had no slurred speech. He had no arm or leg weakness. His primary doctor is Dr. Ayala. ROS All systems reviewed and are negative except as per history of present illness. Medications Home Meds Active Scripts Mineral Oil/Lanolin Oil (Lacri-Lube) 3.5 Gm Oint, 1 APPLIC LEFT EYE NEEDED for DRY EYES, #1 EA Prov:ISIDRO LINDSAY MD 10/10/18 Prednisone* (Prednisone*) 20 Mg Tab, 60 MG PO DAILY for 5 Days, TAB Prov:ISIDRO LINDSAY MD 10/10/18 Hydrocodone Bit-Acetaminophen (Hydrocodone Bit-APAP) 5-325MG Tablet, 1 TAB PO Q8 PRN for PAIN for 14 Days, #42 TAB Prov:EDDIE PHILLIPS 07/15/17 Tamsulosin Hcl* (Flomax*) 0.4 Mg Cap.er.24h, 0.4 MG PO HS for 30 Days, #30 CAP Prov:EDDIE PHILLIPS 07/15/17 Doxycycline* (Vibramycin*) 100 Mg Tab, 100 MG PO BID for 9 Days, #18 TAB Prov:EDDIE PHILLIPS 07/15/17 Aspirin (Aspirin Low Dose) 81 Mg Tablet., 81 MG PO DAILY for 30 Days, #30 TAB Prov:EDDIE PHILLIPS 07/15/17 Simvastatin* (Zocor*) 20 Mg Tablet, 20 MG PO QHS for 30 Days, #30 TAB Prov:EDDIE PHILLIPS 07/15/17 Atenolol* (Atenolol*) 100 Mg Tablet, 100 MG PO QHS for 30 Days, #30 TAB Prov:EDDIE PHILLIPS 07/15/17 Allergies Allergies: Coded Allergies: No Known Allergy (Unverified , 07/08/17) PMhx/Soc History of Surgery: No Anesthesia Reaction: No Hx Neurological Disorder: No Hx Respiratory Disorders: Yes (hx bronchitis) Hx Cardiac Disorders: Yes (htn) Hx Psychiatric Problems: Yes (depression) Hx Miscellaneous Medical Probl: No Hx Alcohol Use: No Hx Substance Use: No Hx Tobacco Use: No Smoking Status: Never smoker FmHx Family History: No diabetes Physical Exam Vitals Vital Signs Date Temp Pulse Resp B/P (MAP) Pulse Ox O2 O2 Flow FiO2 Time Delivery Rate 10/10/18 97.8 68 18 149/89 94 17:32 (109) Physical Exam Const: No acute distress Head: Atraumatic Eyes: Normal Conjunctiva ENT: Normal External Ears, Nose and Mouth. Neck: Full range of motion. No meningismus. Resp: Clear to auscultation bilaterally Cardio: Regular rate and rhythm, no murmurs Abd: Soft, non tender, non distended. Normal bowel sounds Skin: No petechiae or rashes Back: No midline or flank tenderness Ext: No cyanosis, or edema Neur: Awake and alert, left-sided facial droop which involves the eyebrows, no slurred speech, no arm or leg weakness Psych: Normal Mood and Affect Procedures/MDM Patient is a 63-year-old male who presents with what appears to be an acute Herron's palsy. I doubt stroke. I doubt intracranial mass. I believe outpatient management is appropriate at this time. The patient will be treated with a prescription for prednisone and Lacri-Lube. Departure Diagnosis: Primary Impression: Herron's palsy Condition: Fair Patient Instructions: Herron's Palsy Referrals: Dr. Ayala Additional Instructions: Call your primary care doctor TOMORROW for an appointment during the next 1 WEEK.Tell the secretary book keeper that you were referred from this facility.See the doctor sooner or return here if your condition worsens before your appointment time. ISIDRO LINDSAY MD Oct 10, 2018 17:51
[2018-10-10 18:12] VITALS: BP 147/87; PULSE 84; RESP 18
== END 2018-10-10 18:18 | disposition home or self-care (01) ==
LOC: E/R 17:20
DX: G51.0 Bell's palsy (principal); I10 Essential (primary) hypertension; Z79.82 Long term (current) use of aspirin
CPT/HCPCS: 99283